=== PATIENT | female | born 1965 | race Caucasian/White ===

== ENCOUNTER 2024-09-28 10:32 | Outpatient (AMB) | payer MEDICARE, SELFPAY ==
--- NOTE | 2024-09-28 10:43 | A.OFFPC_ITS ---
Vital Signs 09/28/24 10:53 Height 5 ft 3 in Weight 134 lb 6 oz BMI 23.8 BP 154/51 H Blood Pressure Location Lt brachial Position Sitting Respiration 16 Pulse 51 Pulse Source Pulse Oximeter Temp 98.2 F Temp Source Oral Pulse Oximetry (%) 100 Oxygen Delivery Method Room Air Intake Visit Reasons: PORTER BATH- Thyroid med Intake Note: patient here for new patient visit needs thyroid meds Hydraulic Dredge Operator Required: No Is last menstrual period known: No Post menopausal: No Patient : No Allergies acetaminophen (From Percocet) Allergy (Unknown, Verified 09/28/24 10:49) Difficulty Breathing aspirin (From Percodan) Allergy (Unknown, Verified 09/28/24 10:49) Difficulty Breathing morphine Allergy (Unknown, Verified 09/28/24 10:49) Difficulty Breathing oxycodone (From Percodan) Allergy (Unknown, Verified 09/28/24 10:49) Difficulty Breathing Penicillins Allergy (Unknown, Verified 09/28/24 10:49) Unknown contrast dye Allergy (Severe, Uncoded 12/13/23 11:55) blacking out and vomiting femstat vaginal cream Allergy (Unknown, Uncoded 12/13/23 11:55) Rash tylenol and codeine Allergy (Unknown, Uncoded 12/13/23 11:55) Difficulty Breathing Tobacco use date assessed: 09/28/24 Dental Screening Dental Screen Date: 09/28/24 Did you have a dental visit in the last 12 months?: Yes Did you have a dental problem in the last 6 months where you did not have access to dental care?: No Was dental information given to patient?: Patient has dentist HPI HPI Comments History of Present Illness Details This is a 59-year-old female with a past medical history of squamous cell carcinoma of the tongue, mild carotid artery stenosis, non alcoholic fatty liver disease, lobular carcinoma insitu of the breast, hyperlipidemia and allergic urticaria presenting [facility]. Her depression screening is positive, and she wants to discuss this today. in 2011. Her cheated on her. She endorses trust issues. She never pursued dating because of this. She was hospitalized around that time for depression due to severe appetite loss. She was given a medication initially that made her feel numb. She doesn't recall the name. At one point she took Celexa, and she denies known side effects. She wants to retry medication. Endorses anxiety. One daughter lives with her ex-. Patient says she is kind of estranged from her daughter. Endorses fatigue, teafulness, feeling depressed. [facility] Hypothyroidism-post operative hypothyroidism (following surgery for tongue cancer). History of tongue cancer- Dx 2019. patient in remission. Treated with radiation and surgery. seen at [facility] once yearly. Endorses pain of the gland of the right side of the neck x 1 week. No recent illness. Denies sore throat. No fevers or chills. History of left breast carcinoma in situ-followed by [facility] breast specialty on [address] in [place], but she says they don't take her insurance anymore. Patient says they were following a lesion of the right breast with imaging. ROS: Constitutional: No unexplained weight loss, fever, chills ENT: No hearing loss, sneezing, congestion, runny nose or sore throat. Respiratory: No shortness of breath Cardiovascular: No chest pain Neurologic: No headache, dizziness, syncope Hematologic/Lymphatics: No bleeding or bruising. Skin: No rash. Endocrine: No cold or heat intolerance. No polyuria or polydipsia. Psychiatric: No SI/HI. Denies hallucinations or history of psychotic disorder. Physical exam: Constitutional: Alert, in no distress. Head: Normocephalic. Eyes: Pupils are equal, round and reactive to light. Extraocular muscles intact. Ear, Nose and Throat: Canals clear. TMs normal. Normal nasal mucosa. No nasal discharge. No oral lesions. Neck: Supple, Full range of motion. No palpable masses or lymphadenopathy, but she endorses tenderness of the right tonsillar and submandibular area. Respiratory: Clear to auscultation. Cardiovascular: S1 S2 regular. No murmurs. Psychiatric: Tearful, cooperative [facility] Medical History (Updated 09/29/24 @ 14:05 by JIM Bronson) History of tongue cancer Pain of submandibular gland History of tobacco use Depression with anxiety History of left breast cancer Mild atherosclerosis of carotid artery PFO (patent foramen ovale) Non-alcoholic fatty liver disease HTN (hypertension) Hypercholesteremia Allergic urticaria Surgical History (Updated 12/13/23 @ 12:00 by Daniela Andrea CMA) Hx of cholecystectomy H/O breast surgery H/O repair of rotator cuff History of colonoscopy Status post excisional biopsy H/O endoscopy Family History (Updated 09/28/24 @ 10:53 by Francisca Amaya MA) Father Diabetes Renal cancer Alcohol abuse Brother Diabetes Sister Cancer of breast Paternal Grandfather Alcohol abuse Social History (Updated 09/28/24 @ 10:52 by Francisca Amaya MA) Housing: Condominium Patient Tobacco Use Status: Never used Tobacco e-Cigarette/Vaping Use: Never Used Second Hand Smoke Exposure: Yes service: No Current occupational status: disabled Current occupational exposures/hazards: No Cognitive needs: No Hearing needs: No Vision needs: Yes Questionnaire PHQ-9 Over the last 2 weeks, how often have you been bothered by any of the following problems? 1. Little interest or pleasure in doing things: several days 2. Feeling down, depressed, or hopeless: several days 3. Trouble falling or staying asleep, or sleeping too much: several days 4. Feeling tired or having little energy: several days 5. Poor appetite or overeating: several days 6. Feeling bad about yourself - or that you are a failure or have let yourself o r your family down: several days 7. Trouble concentrating on things, such as reading the newspaper or watching television: not at all 8. Moving or speaking so slowly that other people could have noticed. Or the opposite - being so fidgety or restless that you have been moving around a lot more than usual: not at all 9. Thoughts that you would be better off or of hurting yourself in some way: not at all Total score: 6 Depression Screening Interpretation: Positive Depression Screening Done: Yes 24547 - PHQ-9 Billing: Yes Source: Developed by Drs. Eliezer Sapp, Verona Candelario, Pete Meade and colleagues, with an educational rocky from [employer]. Thrive Questionnaire Date Thrive assessed: 09/28/24 I am a: Patient What is your living situation today?: I have a steady place to live Within the past 12 months, did the food you bought not last and you didn't have the money to get more?: Never true Within the past 12 months, did you worry whether your food would run out before you got money to buy more?: Never true Do you have trouble paying for medicines?: No Do you have trouble getting transportation to medical appointments?: No Do you have trouble paying your heating and electricity bill?: No Do you have trouble taking care of your child, family member or friend?: No Do you have trouble with day-to-day activities such as bathing, preparing meals, shopping, managing finances, etc.?: No Are you currently unemployed and looking for a job?: No Are you interested in more education?: No Please select the resources that you would like help with: Food and Utilities Currently or been in a relationship where the following occur: No concerns reported THRIVE Score: 0 AUDIT C Alcohol Use Questionnaire (AUDIT-C) 1. How often do you have a drink containing alcohol?: 2-4 times a month 2. How many drinks containing alcohol do you have on a typical day when you are drinking?: 1 or 2 3. How often do you have six or more drinks on one occasion?: Never Total Score: 2 Score Reviewed/Action Taken: Yes JUSTINE-7 AMB Questionnaire JUSTINE-7 Date JUSTINE - 7 assessed: 09/28/24 Feeling nervous, anxious, or on edge: 1 = Several days Not being able to stop or control worryin = Several days Worrying too much about different things: 1 = Several days Trouble relaxin = Several days Being so restless that it is hard to sit still: 1 = Several days Becoming easily annoyed or irritable: 1 = Several days Feeling afraid as if something awful might happen: 1 = Several days Total JUSTINE-7 score (0-4 normal; 5-9 mild; 10-14 moderate; 15-21 severe): 7 Source: Developed by Drs. Eliezer Sapp, Verona Candelario, Pete Meade and colleagues, with an educational rocky from [employer]. JUSTINE-7 Assessment Billing JUSTINE-7 Assessment Tool: JUSTINE-7 Assessment 82558 Physical exam (Primary Care) Vital Signs: Last Vital Signs Temp 98.2 F 09/28/24 10:53 Pulse 51 09/28/24 10:53 Resp 16 09/28/24 10:53 BP 154/51 H 09/28/24 10:53 Pulse Ox 100 09/28/24 10:53 Oxygen Delivery Method Room Air 09/28/24 10:53 BMI result Body Mass Index 23.8 Tobacco/Smoking Status: Tobacco use Status Tobacco use date assessed 09/28/24 09/28/24 10:52 Patient Tobacco Use Status Never used Tobacco 09/28/24 10:52 e-Cigarette/Vaping Use Never Used 09/28/24 10:52 PHQ-9: PHQ-9 Score PHQ-9: Total score 6 09/28/24 22:24 Depression Screening Interpretation: Positive Thrive Assessment: Date of Thrive Assessment Date Thrive assessed 09/28/24 09/28/24 10:47 Currently or been in a relationship where the following occur: No concerns reported Coding Level of Care Code New Pt Level 4 (40944) Complex EM visit Add On G2211 Diagnoses History of left breast cancer Z85.3 Depression with anxiety F41.8 HTN (hypertension) I10 Pain of submandibular gland K11.8 History of tongue cancer Z85.810 Additional Codes JUSTINE-7 Assessment Billing - JUSTINE-7 Assessment Tool: JUSTINE-7 Assessment 07032 ([id number]) PHQ-9 - 05534 - PHQ-9 Billing: Yes ([id number]) Assessment & Plan Assessment & Plan (1) History of left breast cancer: Comment: LCIS Code(s): Z85.3 - Personal history of malignant neoplasm of breast Category: Medical Plan: [facility] no longer takes her insurance. [facility] [place] Request records from [facility]-information from the breast specialty center was not included in transfer records. (2) Depression with anxiety: Code(s): F41.8 - Other specified anxiety disorders Category: Medical Plan: Continue therapy. Trial of citalopram. Black box warning, side effects and administration reviewed. (3) HTN (hypertension): Code(s): I10 - Essential (primary) hypertension Category: Medical Plan: Blood pressure is suboptimal today. She was emotionally charged during today's visit. Continue current regimen. Recheck at follow up visit. (4) Pain of submandibular gland: Code(s): K11.8 - Other diseases of salivary glands Category: Medical Plan: Check ultrasound. (5) History of tongue cancer: Code(s): Z85.810 - Personal history of malignant neoplasm of tongue Category: Medical Plan: This is in remission. Followed in [place]. Plan Follow up in 4 weeks. Orders: Referrals Breast Surgery Referral Z85.3 - Personal history of malignant neoplasm of breast Medications: New citalopram Take 1/2 tab po daily for 1 week then increase to 1 tab daily 10 mg PO DAILY 30 tabs 1RF
[2024-09-28 10:53] VITALS: BP 154/51; PULSE 51; RESP 16; TEMP 36.8; O2SAT 100; BMI 23.8
--- OUTSIDE RECORDS SUMMARY | 2024-09-28 11:41 | XMS_ITS | Clinical Summary ---
Author Organization [facility] Facility Address [address] [place] [address] Care Team Providers Care Technical Buyer Name Role Phone Toñito Suarez DO Primary Care Provider Allergies No known active allergies Medications levothyroxine sodium (TIROSINT) 50 MCG capsule Take 137 mcg by mouth 1 (one) time each day Active metoprolol succinate XL (TOPROL XL) 25 MG 24 hr tablet Take 25 mg by mouth 1 (one) time each day Do not crush or chew. Active Active Problems Problem Noted Date Diagnosed Date Essential (primary) hypertension 07/21/2021 Non-alcoholic fatty liver 07/21/2021 Hyperlipidemia 07/21/2021 Social History Tobacco Use Types Packs/Day Years Used Date Smoking Tobacco: Former Smokeless Tobacco: Never Tobacco Cessation:Counseling Given: No Alcohol Use Standard Drinks/Week Comments Yes 0 (1 standard drink = 0.6 oz pur e alcohol) Comments Unknown Sex and Gender Information Value Date Recorded Sex Assigned at Not on file Legal Sex Female 5:05 PM EST Gender Identity Not on file Sexual Orientation Not on file Last Filed Vital Signs Vital Sign Reading Time Taken Comments Blood Pressure 132/72 07/21/2021 4:38 PM EDT Pulse 72 07/21/2021 4:38 PM EDT Temperature - - Respiratory Rate - - Oxygen Saturation - - Inhaled Oxygen Concentration - - Weight 63.8 kg (140 lb 9.6 oz) 07/21/2021 4:38 P M EDT Height - - Body Mass Index - - Plan of Treatment Health Maintenance Due Date Last Done Comments Breast Cancer Screening 1965 Pneumococcal Vaccine: 50+ Years (1 of 2 - PCV) 983 Colorectal Cancer Screening: Annual FOBT 2012 Colorectal Cancer Screening: Colonoscopy 2012 Colorectal Cancer Screening: Sigmoidoscopy 2012 Hepatitis B Vaccine (1 of 3 - Risk 3-dose series) 02/17 Influenza Vaccine (#1) 2024 11/22/2018 Insurance Medicare Medicare Care Teams Technical Buyer Relationship Specialty Start Date End Date Toñito Suarez DO [address] [place] [address] PCP - General Family Medicine 06/30/21
--- OUTSIDE RECORDS SUMMARY | 2024-09-28 11:41 | XMS_ITS | Encounter Summary ---
Author Organization [facility] Address [address] [place] [address] Phone Care Team Providers Care Real Estate Services Administrator Name Role Phone Toñito Suarez Primary Care Provider Lakhwinder Murray MD Unavailable Leatha Johnson MD, MPH Unavailable [phone] Eliezer Watt MD Unavailable [phone] Slim Booker MD, DMD Unavailable Yuliet Mcpherson RN Unavailable [phone] Helena Salgado RN Unavailable Shyla Grande NP Unavailable Garrett Santoro Unavailable Silvia [email or web address] Yousif Lugo MD Primary Care Provider [phone] Encounter Details Date Type Department Care Team (Late st Contact Info) Description 11/19/2020 Procedure [facility] [place], [facility] [place] [address] [facility], Floor [address] [place] [address] Social History Tobacco Use Types Packs/Day Years Used Date Smoking Tobacco: Former Cigarettes 0.3 40 0 02/15/1977 - 02/15/2017 Smokeless Tobacco: Never Comments:off and on through the years, never heavily--second hand smoke exposure Alcohol Use Standard Drinks/Week Comments Yes 0 (1 standard drink = 0.6 oz pure alcohol) 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--no alcohol since 2018 Comments No Sex and Gender Information Value Date Recorded Sex Assigned at Female 08/11/2020 9:04 PM EDT Legal Sex Female 3:32 PM EDT Gender Identity Female 08/11/2020 9:04 PM EDT Sexual Orientation Straight 08/11/2020 9: 04 PM EDT documented as of this encounter Plan of Treatment Not on file documented as of this encounter Visit Diagnoses Not on filedocumented in this encounter Additional Health Concerns Assessment Noted Time PHQ-2 Depression Total Score: 0 12/17/19 19 8:09 AM EDT documented as of this encounter Care Teams Real Estate Services Administrator Relationship Specialty Start Date End Date Toñito Suarez DO [address] [facility] [place] [address] PCP - General Family Medicine 09/26/18 02/02/23 Yousif Lugo MD [address] [place] [address] PCP - General 02/04/23 Lakhwinder Murray MD [address] [facility] [place] [address] [email or web address] Referring Physician lockstitch machine operator 09/26/18 Leatha Johnson MD, MPH [address] [place] [phone] [email or web address] Radiation Oncology 10/26/18 Eliezer Watt MD [address] [place] [phone] [email or web address] Medical Oncology 11/03/18 Slim Booker MD, DMD [address] [place] [phone] [email or web address] Otolaryngology 11/03/18 Yuliet Mcpherson RN [address] [place] [phone] [email or web address] Primary Infusion Nurse 12/19/18 06/25/22 Helena Salgado RN [address] [place] [address] [email or web address] Associate Infusion Nurse 12/22/18 06/25/22 Shyla Grande NP [address] [place] [phone] Marva@[email or web address] Radiation Oncology 01/06/19 Garrett Santoro [address] [place] [address] [email or web address] Correctional Supervisor 01/29/23 documented as of this encounter Additional Source Comments The information contained in this document represents components of the legal health record. It is not the complete legal health record.[facility]
== END 2024-09-28 11:33 | disposition home or self-care (01) ==
PROVIDERS: PCP Physician Assistant Medical; Visit Provider Physician Assistant Medical
DX: Z85.3 Personal history of malignant neoplasm of breast (principal); F41.8 Other specified anxiety disorders; I10 Essential (primary) hypertension; K11.8 Other diseases of salivary glands; Z85.810 Personal history of malignant neoplasm of tongue

== ENCOUNTER → 2024-09-28 10:32 | Outpatient (BNVA) | payer MEDICARE, SELFPAY | PROVIDERS: PCP Physician Assistant Medical; Visit Provider Physician Assistant Medical | DX: F41.8 Other specified anxiety disorders (principal); I10 Essential (primary) hypertension; K11.8 Other diseases of salivary glands; E89.0 Postprocedural hypothyroidism; Z85.810 Personal history of malignant neoplasm of tongue; Z86.000 Personal history of in-situ neoplasm of breast; Z92.3 Personal history of irradiation; Z13.31 Encounter for screening for depression; Z13.39 Encounter for screening examination for other mental health and behavioral disorders | CPT/HCPCS: 96127; 99202 ==

== ENCOUNTER 2024-10-10 15:55 | Outpatient (REF) | payer MEDICARE, SELFPAY ==
--- NOTE | ~2024-10-10 | US_ITS ---
EXAMINATION: US SOFT TISSUE HEAD AND/OR NECK CLINICAL INFORMATION: Patient complaining of pain in left submandibular region. History of tongue cancer with prior removal of left submandibular gland. COMPARISON: None available. TECHNIQUE: Linear transducer lugo-scale and color Doppler examination with attention to the left submandibular region, in the region of pain. The right submandibular region was also imaged for comparison purposes. FINDINGS: Left submandibular region demonstrates no mass, abnormal lymph nodes, or abnormal fluid collection. The left submandibular gland is not seen and is presumably surgically absent. Imaging of the right submandibular gland demonstrates a normal appearing gland measuring 2.8 x 1.0 cm. No abnormal lymph nodes, mass, or abnormal fluid collection. US/US soft tiss head and/or neck IMPRESSION: 1. Absent left submandibular gland, presumably surgically absent. 2. No sonographic abnormality in the left submandibular region to account for the patient's symptoms. 3. Grossly normal appearance of the right submandibular gland. Electronically signed by: Nathanael Abernathy MD 10/10/2024 04:50 PM EDT
--- OUTSIDE RECORDS SUMMARY | 2024-10-10 16:39 | XMS_ITS | Encounter Summary ---
Author Organization [facility] Address [address] [place] [address] Phone Care Team Providers Care Fence Installer Helper Name Role Phone Toñito Suarez Primary Care Provider Lakhwinder Murray MD Unavailable [phone] Leatha Johnson MD, MPH Unavailable [phone] Eliezer Watt MD Unavailable [phone] Slim Booker MD, DMD Unavailable Yuliet Mcpherson RN Unavailable [phone] Helena Salgado RN Unavailable Shyla Grande NP Unavailable Garrett Santoro Unavailable Silvia [email or web address] Yousif Lugo MD Primary Care Provider [phone] Encounter Details Date Type Department Care Team (Late st Contact Info) Description 11/19/2020 Procedure [facility] [place] Imaging Department, [facility] [place], [place] [address] [facility], Floor [address] [place] [address] Social History Tobacco Use Types Packs/Day Years [...] documented as of this encounter Care Teams Fence Installer Helper Relationship Specialty Start Date End Date Toñito Suarez DO [address] [facility] [place] [address] PCP - General Family Medicine 09/26/18 02/02/23 Yousif Lugo MD [address] [place] [address] PCP - General 02/04/23 Lakhwinder Murray MD [address] [facility] [place] [address] [email or web address] Referring Physician barrel rifler 09/26/18 Leatha Johnson MD, MPH [address] [place] [phone] [email or web address] Radiation Oncology 10/26/18 Eliezer Watt MD [address] [place] [phone] [email or web address] Medical Oncology 11/03/18 Slim Booker MD, DMD [address] [place] [phone] [email or web address] Otolaryngology 11/03/18 Yuliet Mcpherson RN [address] [place] [phone] [email or web address] Primary Infusion Nurse 12/19/18 06/25/22 Helena Salgado RN [address] [place] [address] [email or web address] Associate Infusion Nurse 12/22/18 06/25/22 Shyla Grande NP [address] [place] [phone] Marva@[email or web address] Radiation Oncology 01/06/19 Garrett Santoro [address] [place] [address] [email or web address] Paint Tester 01/29/23 documented as of this encounter Additional Source Comments The information contained in this document represents components of the legal health record. It is not the complete legal health record.[facility]
--- OUTSIDE RECORDS SUMMARY | 2024-10-10 16:40 | XMS_ITS | Clinical Summary ---
Author Organization [facility] Facility Address [address] [place] [address] Care Team Providers Care Engineer Second Assistant Name Role Phone Toñito Suarez DO Primary Care Provider [phone] Allergies No known active allergies Medications levothyroxine [...] 2024 11/22/2018 Insurance Medicare Medicare Care Teams Engineer Second Assistant Relationship Specialty Start Date End Date Toñito Suarez DO [address] [place] [address] PCP - General Family Medicine 06/30/21
--- OUTSIDE RECORDS SUMMARY | 2024-10-10 16:40 | XMS_ITS | Encounter Summary ---
Author Organization [facility] Address [address] [place] [address] Phone Care Team Providers Care Proofsheet Corrector Name Role Phone Toñito Suarez Primary Care Provider Lakhwinder Murray MD Unavailable Leatha Johnson MD, MPH Unavailable [phone] Eliezer Watt MD Unavailable [phone] Slim Booker MD, DMD Unavailable Yuliet Mcpherson RN Unavailable [phone] Helena Salgado RN Unavailable Shyla Grande NP Unavailable Garrett Santoro Unavailable Silvia [email or web address] Yousif Lugo MD Primary Care Provider [phone] Encounter Details Date Type Department Care Team (Late st Contact Info) Description 10/04/2018 Procedure [facility] [place] Imaging Department, [facility] [place], [place] [address] [facility], Floor [address] [place] [address] Social History Tobacco Use Types Packs/Day Years Used Date Smoking Tobacco: Former Cigarettes Smokeless Tobacco: Never Comments:off and on through the years, never heavily Alcohol Use Standard Drinks/Week Comments Yes 0 (1 standard drink = 0.6 oz pure alcohol) 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 Comments Unknown Sex and Gender Information Value Date Recorded Sex Assigned at Female 08/11/2020 9:04 PM EDT Legal Sex Female 3:32 PM EDT Gender Identity Female 08/11/2020 9:04 PM EDT Sexual Orientation Straight 08/11/2020 9: 04 PM EDT documented as of this encounter Plan of Treatment Not on file documented as of this encounter Visit Diagnoses Not on filedocumented in this encounter Care Teams Proofsheet Corrector Relationship Specialty Start Date End Date Toñito Suarez DO [address] [facility] [place] [address] PCP - General Family Medicine 09/26/18 02/02/23 Yousif Lugo MD [address] [place] [address] PCP - General 02/04/23 Lakhwinder Murray MD [address] [facility] [place] [address] [email or web address] Referring Physician event host 09/26/18 Leatha Johnson MD, MPH [address] [place] [phone] [email or web address] Radiation Oncology 10/26/18 Eliezer Watt MD [address] [place] [phone] [email or web address] Medical Oncology 11/03/18 Slim Booker MD, DMD [address] [place] [phone] [email or web address] 11/03/18 Yuliet Mcpherson RN [address] [place] [address] [email or web address] Primary Infusion Nurse 12/19/18 06/25/22 Helena Salgado RN [address] [place] [phone] [email or web address] Associate Infusion Nurse 12/22/18 06/25/22 Shyla Grande NP [address] [place] [phone] [email or web address] Radiation Oncology 01/06/19 Garrett Santoro [address] [place] [address] [email or web address] Casing Soaker 01/29/23 documented as of this encounter Additional Source Comments The information contained in this document represents components of the legal health record. It is not the complete legal health record.[facility]
--- OUTSIDE RECORDS SUMMARY | 2024-10-10 16:40 | XMS_ITS | Encounter Summary ---
Author Organization [facility] Address [address] [place] [address] Phone Care Team Providers Care Measurement Psychologist Name Role Phone Toñito Suarez Primary Care Provider Lakhwinder Murray MD Unavailable [phone] Leatha Johnson MD, MPH Unavailable [phone] Eliezer Watt MD Unavailable Slim Booker MD, DMD Unavailable [phone] Yuliet Mcpherson RN Unavailable [phone] Helena Salgado RN Unavailable Shyla Grande NP Unavailable Garrett Santoro Unavailable Silvia @[email or web address] Yousif Lugo MD Primary Care Provider [phone] Encounter Details Date Type Department Care Team (Late st Contact Info) Description 04/14/2019 Transcribe Orders [place] [facility], [facility] [place], Imaging Ayana-df-Qcae 450 [facility], [place] [address] [place] [address] Leatha Johnson MD, MPH [address] [place] [address] [email or web address] Blood tests prior to treatment or procedure (Primary Dx) Social History Tobacco Use Types Packs/Day Years [...] on file documented as of this encounter Results * Creatinine/eGFR (04/17/2019 10:16 AM EST) CREATININE 0.59 0.50 - 1.20 mg/dL [facility] LIC# [id number] EGFR 102 >59 mL/min/1.7 3m2 [facility] LIC# [id number] Comment:If patient is Starla n-Turkmen, multiply result by 1.159. Estimated glomerular filtration rate calculated using the CKD-EPI equation. Blood 04/17/2019 10:1 6 AM EST 04/17/2019 10:30 AM EST us Leatha Johnson MD, MPH LAB BLOOD ORDERABLES Final Result [facility] LIC# [id number] [address] [place] [address] documented in this encounter Visit Diagnoses Diagnosis Blood tests prior to treatment or procedure- Primary Pre-procedural laboratory examination documented in this encounter Additional Health Concerns Assessment Noted Time PHQ-2 Depression Total Score: 0 12/17/19 19 8:09 AM EDT documented as of this encounter Care Teams Measurement Psychologist Relationship Specialty Start Date End Date Toñito Suarez DO 24 [facility] [place] [address] PCP - General Family Medicine 09/26/18 02/02/23 Yousif Lugo MD [address] [place] [address] PCP - General 02/04/23 Lakhwinder Murray MD 24 [facility] [place] [address] [email or web address] Referring Physician patient accounts coordinator 09/26/18 Leatha Johnson MD, MPH [address] [place] [phone] [email or web address] Radiation Oncology 10/26/18 Eliezer Watt MD [address] [place] [phone] Lalo@[facility] Medical Oncology 11/03/18 Slim Booker MD, DMD [address] [place] [phone] [email or web address] Otolaryngology 11/03/18 Yuliet Mcpherson RN [address] [place] [phone] MIYA@[email or web address] Primary Infusion Nurse 12/19/18 06/25/22 Helena Salgado RN 450 [place] [address] CRYSTAL@[email or web address] Associate Infusion Nurse 12/22/18 06/25/22 Shyla Grande NP [address] [place] [address] Marva@[email or web address] Radiation Oncology 01/06/19 Garrett Santoro [address] [place] [address] Silvia@[email or web address] Income Tax Administrator 01/29/23 documented as of this encounter Additional Source Comments The information contained in this document represents components of the legal health record. It is not the complete legal health record.[facility]
--- OUTSIDE RECORDS SUMMARY | 2024-10-10 16:40 | XMS_ITS | Encounter Summary ---
Author Organization [facility] Address [address] [place] [address] Phone Care Team Providers Care Senior Sales Executive Name Role Phone Toñito Suarez Primary Care Provider Lakhwinder Murray MD Unavailable Leatha Johnson MD, MPH Unavailable [phone] Eliezer Watt MD Unavailable [phone] Slim Booker MD, DMD Unavailable Yuliet Mcpherson RN Unavailable [phone] Helena Salgado RN Unavailable Shyla Grande NP Unavailable Garrett Santoro Unavailable Silvia @[email or web address].[facility] Yousif Lugo MD Primary Care Provider [phone] Encounter Details Date Type Department Care Team (Late st Contact Info) Description 08/12/2019 Procedure Pass [place] [facility] Department, [facility] [place] 450 [facility], [address] [place] [address] Social History Tobacco Use Types Packs/Day Years [...] Time PHQ-2 Depression Total Score: 0 12/17/19 8:09 AM EDT documented as of this encounter Care Teams Senior Sales Executive Relationship Specialty Start Date End Date Toñito Suarez DO 24 No [facility] [place] [address] PCP - General Family Medicine 09/26/18 02/02/23 Yousif Lugo MD [address] [place] [address] PCP - General 02/04/23 Lakhwinder Murray MD 24 No [facility] [place] [address] [email or web address] Referring Physician getter welder 09/26/18 Leatha Johnson MD, MPH [address] [place] [phone] [email or web address] Radiation Oncology 10/26/18 Eliezer Watt MD [address] [place] [phone] Lalo@[facility] Medical Oncology 11/03/18 Slim Booker MD, DMD [address] [place] [phone] [email or web address] Otolaryngology 11/03/18 Yuliet Mcpherson RN [address] [place] [address] MIYA@[email or web address] Primary Infusion Nurse 12/19/18 06/25/22 Helena Salgado RN [address] [place] [address] CRYSTAL@[facility] Associate Infusion Nurse 12/22/18 06/25/22 Shyla Grande NP [address] [place] [address] Marva@[facility] Radiation Oncology 01/06/19 Garrett Santoro [address] [place] [address] Silvia@[facility] Automobile Mechanic Assistant 01/29/23 documented as of this encounter Additional Source Comments The information contained in this document represents components of the legal health record. It is not the complete legal health record.[facility]
--- OUTSIDE RECORDS SUMMARY | 2024-10-10 16:40 | XMS_ITS | Encounter Summary ---
Author Organization [facility] Address [address] [place] [address] Phone Care Team Providers Care Environmental Health Technician Name Role Phone Toñito Suarez Primary Care Provider Lakhwinder Murray MD Unavailable Leatha Johnson MD, MPH Unavailable [phone] Eliezer Watt MD Unavailable Slim Booker MD, DMD Unavailable Yuliet Mcpherson RN Unavailable [phone] Helena Salgado RN Unavailable Shyla Grande NP Unavailable [phone] Garrett Santoro Unavailable Silvia @[email or web address].[facility] Yousif Lugo MD Primary Care Provider [phone] Encounter Details Date Type Department Care Team (Late st Contact Info) Description 09/12/2019 Procedure Pass [place] [facility] Department, [facility] [place], [place] 450 [facility], Floor [address]1 [place] [address] Social History Tobacco Use Types Packs/Day Years [...] documented as of this encounter Care Teams Environmental Health Technician Relationship Specialty Start Date End Date Toñito Suarez DO 24 No [facility] [place] [address] PCP - General Family Medicine 09/26/18 02/02/23 Yousif Lugo MD [address] [place] [address] PCP - General 02/04/23 Lakhwinder Murray MD 24 No [facility] [place] [address] [email or web address] Referring Physician senior payroll administrator 09/26/18 Leatha Johnson MD, MPH [address] [place] [phone] Russ@[email or web address] Radiation Oncology 10/26/18 Eliezer Watt MD [address] [place] [phone] Lalo@[facility] Medical Oncology 11/03/18 Slim Booker MD, DMD [address] [place] [phone] [email or web address] Otolaryngology 11/03/18 Yuliet Mcpherson RN 450 [place] [address] MIYA@[facility] Primary Infusion Nurse 12/19/18 06/25/22 Helena Salgado RN 450 [place] [address] CRYSTAL@[facility] Associate Infusion Nurse 12/22/18 06/25/22 Shyla Grande NP [address] [place] [address] Marva@[facility] Radiation Oncology 01/06/19 Garrett Santoro [address] [place] [address] Silvia@[facility] Manager Card 01/29/23 documented as of this encounter Additional Source Comments The information contained in this document represents components of the legal health record. It is not the complete legal health record.[facility]
--- OUTSIDE RECORDS SUMMARY | 2024-10-10 16:40 | XMS_ITS | Encounter Summary ---
Author Organization [facility] Address [address] [place] [address] Phone Care Team Providers Care Bulb Packer Name Role Phone Toñito Suarez Primary Care Provider Lakhwinder Murray MD Unavailable Leatha Johnson MD, MPH Unavailable [phone] Eliezer Watt MD Unavailable Slim Booker MD, DMD Unavailable Yuliet Mcpherson RN Unavailable [phone] Helena Salgado RN Unavailable Shyla Grande NP Unavailable Garrett Santoro Unavailable Silvia @[facility].[email or web address].[facility] Yousif Lugo MD Primary Care Provider [phone] Encounter Details Date Type Department Care Team (Late st Contact Info) Description 10/14/2018 Procedure Pass [facility] Periop [address] [place] [address] Social History Tobacco Use Types Packs/Day Years Used Date Smoking Tobacco: Former Cigarettes Smokeless Tobacco: Never Comments:off and on through the years, never heavily Alcohol Use Standard Drinks/Week Comments Yes 0 (1 standard drink = 0.6 oz pure alcohol) 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 Comments No Sex and Gender Information Value [...] on filedocumented in this encounter Care Teams Bulb Packer Relationship Specialty Start Date End Date Toñito Suarez DO 24 [facility] [place] [address] PCP - General Family Medicine 09/26/18 02/02/23 Yousif Lugo MD [address] [place] [address] PCP - General 02/04/23 Lakhwinder Murray MD 24 [facility] [place] [address] Precious@[employer] Referring Physician check examiner 09/26/18 Leatha Johnson MD, MPH [address] [place] [phone] Russ@[email or web address] Radiation Oncology 10/26/18 Eliezer Watt MD [address] [place] [phone] Lalo@[facility] Medical Oncology 11/03/18 Slim Booker MD, DMD [address] [place] [phone] [email or web address] Otolaryngology 11/03/18 Yuliet Mcpherson RN 450 [place] [address] MIYA@[facility] Primary Infusion Nurse 12/19/18 06/25/22 Helena Salgado RN 450 [place] [address] [email or web address]@[email or web address] Associate Infusion Nurse 12/22/18 06/25/22 Shyla Grande NP [address] [place] [phone] Marva@[email or web address] Radiation Oncology 01/06/19 Garrett Santoro [address] [place] [address] Silvia@[facility] Beaver Trapper 01/29/23 documented as of this encounter Additional Source Comments The information contained in this document represents components of the legal health record. It is not the complete legal health record.[facility]
--- OUTSIDE RECORDS SUMMARY | 2024-10-10 16:40 | XMS_ITS | Encounter Summary ---
Author Organization [facility] Address [address] [place] [address] Phone Care Team Providers Care Satellite Communications Engineer Name Role Phone Toñito Suarez Primary Care Provider Lakhwinder Murray MD Unavailable Leatha Johnson MD, MPH Unavailable [phone] Eliezer Watt MD Unavailable [phone] Slim Booker MD, DMD Unavailable Yuliet Mcpherson RN Unavailable [phone] Helena Salgado RN Unavailable Shyla Grande NP Unavailable Garrett Santoro Unavailable Silvia @[email or web address] Yousif Lugo MD Primary Care Provider [phone] Encounter Details Date Type Department Care Team (Late st Contact Info) Description 11/19/2020 Procedure Pass [place] Imaging Department, [facility] [place], [place] 450 [facility], Floor [address]1 [place] [address] Social History Tobacco Use Types Packs/Day Years [...] documented as of this encounter Care Teams Satellite Communications Engineer Relationship Specialty Start Date End Date Toñito Suarez DO 24 No [facility] [place] [address] PCP - General Family Medicine 09/26/18 02/02/23 Yousif Lugo MD [address] [place] [address] PCP - General 02/04/23 Lakhwinder Murray MD 24 No [facility] [place] [address] Precious@[email or web address] Referring Physician supervisor customer services 09/26/18 Leatha Johnson MD, MPH [address] [place] [address] Russ@[email or web address] Radiation Oncology 10/26/18 Eliezer Watt MD [address] [place] [phone] Lalo@[email or web address] Medical Oncology 11/03/18 Slim Booker MD, DMD [address] [place] [phone] [email or web address] Otolaryngology 11/03/18 Yuliet Mcpherson RN 450 [place] [address] MIYA@[facility] Primary Infusion Nurse 12/19/18 06/25/22 Helena Salgado RN 450 [place] [address] CRYSTAL@[facility] Associate Infusion Nurse 12/22/18 06/25/22 Shyla Grande NP [address] [place] [address] Marva@[facility] Radiation Oncology 01/06/19 Garrett Santoro 75 [place] [address] Silvia@[facility] Occupational Therapy Asst 01/29/23 documented as of this encounter Additional Source Comments The information contained in this document represents components of the legal health record. It is not the complete legal health record.[facility]
--- OUTSIDE RECORDS SUMMARY | 2024-10-10 16:40 | XMS_ITS | Clinical Summary ---
Author Organization [facility] Address [address] [place] [address] Phone Care Team Providers Care Supervisory Cbp Officer Name Role Phone Lakhwinder Murray MD Unavailable Leatha Johnson MD, MPH Unavailable [phone] Eliezer Watt MD Unavailable [phone] Slim Booker MD, DMD Unavailable [phone] Shyla Grande INVESTMENT EXECUTIVE Unavailable Garrett Santoro Unavailable Garrett_Maude @[facility] Yousif Lugo MD Primary Care Provider [phone] Allergies Active Allergy Reactions Criticality Noted Date Comments Bee Pollen 09/27/2018 Codeine Shortness Of Breath High 09/27/2018 chest heaviness, erythema Gadolinium-Containing Contrast Media 10/10/2018 IV Contrast, reports having MRI last week and did not have reaction Morphine Shortness Of Breath,Erythema Multiforme High 09/27/2018 Heaviness in chest Penicillins Erythema Multiforme 09/27/2018 Oxycodone-Acetaminophe n Shortness Of Breath,Erythema Multiforme High 09/27/2018 Heaviness in chest Medications therapeutic multivitamin tablet Take 1 tablet by mouth daily. Active metoprolol succinate (TOPROL-XL) 25 MG 24 hr tablet Take 25 mg by mouth 2 (two) times a day. 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 Tongue cancer 10/14/2018 Cancer Staging:Clinical stage from 12/06/2019:Stage DAVID(cT1, cN2b, cM0, Absent) - Unsigned Pathologic stage from 12/06/2019:Stage DAVID(pT2, pN2b, cM0) - Unsigned Squamous cell carcinoma of base of tongue 2018 Hypertensive disorder Family History Medical History Relation Comments Diabetes Brother Kidney cancer Father Breast cancer Maternal Cousin Diabetes Mother Pacemaker Mother Late 40s/early 5 0s Breast cancer Sister 1 Diabetes Sister 1 Breast cancer Sister 2 Heart attack Neg Hx Sudden Neg Hx Relation Status Comments Brother Father Maternal Cousin Mother Sister 1 Alive Sister 2 Social History Tobacco Use Types Packs/Day Years Used Date Smoking Tobacco: Former Cigarettes 0.3 40 0 02/15/1977 - 02/15/2017 Smokeless Tobacco: Never Comments:off and on through the years, never heavily--second hand smoke exposure Alcohol Use Standard Drinks/Week Comments Yes 0 (1 standard drink = 0.6 oz pure alcohol) 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 Not on joanna e 06/12/2022 Are you concerned about learning? Not on file 06/12/2022 No 06/12/2022 No 06/12/2022 Digital Access Answer Date Recorded No 07/12/2022 No 07/12/2022 No 07/12/2022 Reliable internet access at home? Not on file 07/12/2022 Device with a working camera? Not on file Comments No Sex and Gender Information Value Date Recorded Sex Assigned at Female 08/11/2020 9:04 PM EDT Legal Sex Female 3:32 PM EDT Gender Identity Female 08/11/2020 9:04 PM EDT Sexual Orientation Straight 08/11/2020 9: 04 PM EDT Last Filed Vital Signs Vital Sign Reading Time Taken Comments Blood Pressure 153/75 02/04/2023 11:22 AM EST Pulse 56 02/04/2023 11:22 AM EST Temperature 37 C (98.6 F) 02/04/2023 11:22 AM EST Respiratory Rate 18 02/04/2023 11:2 2 AM EST Oxygen Saturation 99% 02/04/2023 11: 22 AM EST Inhaled Oxygen Concentration 30% 10/14/2018 6 :18 PM EDT Weight 63.5 kg (139 lb 15.9 oz) 023 11:22 AM EST Height 161.7 cm (5' 3.66 ) 02/04/2023 1 1:22 AM EST Body Mass Index 24.29 02/04/2023 11:22 AM EST Plan of Treatment Health Maintenance Due Date Last Done Comments Adult Td,Tdap Booster 1963 LIPID PANEL 1963 SMOKING Hx and SMOKELESS TOBACCO SCREENING 1976 HEPATITIS C SCREENING 1981 HIV ONE-TIME SCREENING (18-65 YEARS) 1981 PNEUMOCOCCAL VACCINES (50+ years) (1 of 2 - PCV) 1982 ZOSTER VACCINES (1 of 2) 1982 PAP SMEAR 1984 MAMMOGRAM 2003 COLOGUARD 2008 COLONOSCOPY 2008 COLORECTAL CANCER SCREENING 2008 FIT TEST 2008 FOBT 2008 SIGMOIDOSCOPY 2008 VIRTUAL COLONOSCOPY 2008 DEPRESSION SCREENING 12/17/2019 12/16/2018 TSH LEVEL 08/14/2021 08/14/2020, 04/17, 09/11/2019 BLOOD PRESSURE 08/06/2023 02/04/2023 COVID-19 VACCINE ( season) 2023 12/22/2021, 02/16/2021, 05/01/2020, Additional history exists RSV VACCINE (1 - 1-dose 75+ series) 2038 HEPATITIS A VACCINES Aged Out No long er eligible based on patient's age to complete this topic HIB VACCINES Aged Out No longer eligi ble based on patient's age to complete this topic MENINGOCOCCAL VACCINES (ACWY) Aged Out No longer eligible based on patient's age to complete this topic MENINGOCOCCAL VACCINES (B) Aged Out N o longer eligible based on patient's age to complete this topic Medical Devices Not on file Procedures Procedure Name Priority Date/Time Associated Diagnosis Comments TSH Routine 08/14/2020 11:01 AM EDT 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 from Last 3 Months or Most Recently Relevant to Health Maintenance Results * TSH (08/14/2020 11:01 AM EDT) TSH 2.82 0.27 - 4.20 uIU/mL [facility] LIC# [id number] Blood 08/14/2020 11:0 1 AM EDT 08/14/2020 11:10 AM EDT us Leatha Johnson MD, MPH LAB BLOOD ORDERABLES Final Result [facility] LIC# [id number] [address] [place] [address] from Last 3 Months or Most Recently Relevant to Health Maintenance Insurance [facility] A[facility] MEDICARE REPLACEMENT [facility] MEDICARE [facility]PLACEMENT [facility] MEDICARE REPLACEMENT [facility] MEDICARE REPLACEMENT Member Subscriber Plan / Payer (Ef fective 2022-Present) Name:Cee Montgomery A Relation to Subscriber:Self Name:Cee Montgomery A Payer ID:[id number] (NAIC) Type:Medicare Address: [place] [id number] [facility] MEDICARE REPLACEMENT [facility] MEDICARE REPLACEMENT Advance Directives For more information, please contact: [phone] (9AM - 5PM [facility], Wednesday-Wednesday) Documents on File Type Date Recorded Patient Commercial Hvac Service Technician Expl magdalene Healthcare Proxy 10/14/2018 * Full Code (Presumed) (Latest Code Status on File) Date Activated Date Inactivated Comments 10/14/2018 7:58 PM 10/17/2018 4:31 PM Healthcare Agents on File Name Relationship Healthcare Agent Relationship Communication David Freeman .Primary Health Care Agent (Proxy form on file) Eddie Downing Brothnazia Alternate Health care Agent (Proxy form on file) Care Teams Supervisory Cbp Officer Relationship Specialty Start Date End Date Yousif Lugo MD [address] [place], [place] [phone] PCP - General 02/04/23 Lakhwinder Murray MD Precious@[email or web address] Referring Physician lard mixer 09/26/18 Leatha Johnson MD, MPH [address] [place] [phone] [email or web address] Radiation Oncology 10/26/18 Eliezer Watt MD [address] [place] [phone] Lalo@[facility] Medical Oncology 11/03/18 Slim Booker MD, DMD [address] [place] [phone] [email or web address] Otolaryngology 11/03/18 Shyla Grande NP [address] [place] [phone] Marva@[facility] Radiation Oncology 01/06/19 Garrett Santoro [address] [place] [phone] Silvia@[facility] Deputy Sheriff Chief 01/29/23 Additional Source Comments The information contained in this document represents components of the legal health record. It is not the complete legal health record.[facility]
--- OUTSIDE RECORDS SUMMARY | 2024-10-10 16:40 | XMS_ITS | Encounter Summary ---
Author Organization [facility] Address [address] [place] [phone] Phone Care Team Providers Care Cereal Miller Name Role Phone Toñito Suarez Primary Care Provider Lakhwinder Murray MD Unavailable [phone] Leatha Johnson MD, MPH Unavailable [phone] Eliezer Watt MD Unavailable Slim Booker MD, DMD Unavailable Yuliet Mcpherson RN Unavailable [phone] Helena Salgado RN Unavailable Shyla Grande NP Unavailable Garrett Santoro Unavailable [email or web address] Yousif Lugo MD Primary Care Provider [phone] Encounter Details Date Type Department Care Team (Late st Contact Info) Description 09/12/2019 Procedure Pass [place] [facility], [facility] [place], [place] [address] [facility], [address] [place] [address] Social History Tobacco Use Types Packs/Day Years [...] documented as of this encounter Care Teams Cereal Miller Relationship Specialty Start Date End Date Toñito Suarez DO [address] [facility] [place] [address] PCP - General Family Medicine 09/26/18 02/02/23 Yousif Lugo MD [address] [place] [address] PCP - General 02/04/23 Lakhwinder Murray MD [address] [facility] [place] [address] [email or web address] Referring Physician commodity supervisor 09/26/18 Leatha Johnson MD, MPH [address] [place] [phone] [email or web address] Radiation Oncology 10/26/18 Eliezer Watt MD [address] [place] [phone] [email or web address] 11/03/18 Slim Booker MD, DMD [address] [place] [phone] [email or web address] 11/03/18 Yuliet Mcpherson RN [address] [place] [address] [email or web address] Primary Infusion Nurse 12/19/18 06/25/22 Helena Salgado RN [address] [place] [address] [email or web address] Associate Infusion Nurse 12/22/18 06/25/22 Shyla Grande NP [address] [place] [phone] [email or web address] Radiation Oncology 01/06/19 Garrett Santoro [address] [place] [address] [email or web address] Gang Supervisor 01/29/23 documented as of this encounter Additional Source Comments The information contained in this document represents components of the legal health record. It is not the complete legal health record.[facility]
== END 2024-10-10 15:56 | disposition home or self-care (01) ==
LOC: HO.US 15:55
PROVIDERS: PCP Physician Assistant Medical; Visit Provider Physician Assistant Medical
DX: K11.8 Other diseases of salivary glands (principal)
CPT/HCPCS: 76536

== ENCOUNTER → 2024-10-10 15:58 | Outpatient (BNV) | payer MEDICARE, SELFPAY | PROVIDERS: PCP Physician Assistant Medical; Visit Provider Radiology Diagnostic Radiology | DX: R68.84 Jaw pain (principal) | CPT/HCPCS: 76536 ==

== ENCOUNTER 2025-01-22 15:49 | Outpatient (AMB) | payer MEDICARE, SELFPAY ==
--- NOTE | 2025-01-22 15:51 | MHC.PC.OV ---
Vital Signs 01/22/25 15:56 01/22/25 15:58 01/22/25 16:27 01/22/25 16:29 Height 5 ft 3 in Weight 114 lb 4 oz BMI 20.2 BP 104/78 148/94 H 136/88 Blood Pressure Location Lt brachial Rt brachial Position Sitting Sitting Respiration 15 Pulse 101 H 88 Pulse Source Pulse Oximeter Temp 98.6 F Temp Source Temporal Artery Scan Pulse Oximetry (%) 99 Oxygen Delivery Method Room Air Oxygen Flow Rate 98.6 Intake Visit Reasons: D/C from [place] on 01/09 dehydrated Intake Note: Cee presents in the office today for a disharge follow up. Packer Insulation Required: No Is last menstrual period known: No Post menopausal: No Patient : No Allergies acetaminophen (From Percocet) Allergy (Unknown, Verified 01/22/25 15:55) Difficulty Breathing aspirin (From Percodan) Allergy (Unknown, Verified 01/22/25 15:55) Difficulty Breathing morphine Allergy (Unknown, Verified 01/22/25 15:55) Difficulty Breathing oxycodone (From Percodan) Allergy (Unknown, Verified 01/22/25 15:55) Difficulty Breathing Penicillins Allergy (Unknown, Verified 01/22/25 15:55) Unknown contrast dye Allergy (Severe, Uncoded 01/22/25 15:55) blacking out and vomiting femstat vaginal cream Allergy (Unknown, Uncoded 01/22/25 15:55) Rash tylenol and codeine Allergy (Unknown, Uncoded 01/22/25 15:55) Difficulty Breathing Tobacco use date assessed: 01/22/25 Dental Screening Dental Screen Date: 01/22/25 Did you have a dental visit in the last 12 months?: Yes Did you have a dental problem in the last 6 months where you did not have access to dental care?: No Was dental information given to patient?: Patient has dentist HPI HPI Comments History of Present Illness Details This is a 59-year-old female with a past medical history of squamous cell carcinoma of the tongue, mild carotid artery stenosis, non alcoholic fatty liver disease, lobular carcinoma insitu of the breast, hyperlipidemia and allergic urticaria presents for hospital follow up. The patient was admitted to [facility] 12/06/2024 to 12/09/2024 after near syncopal episode. She had fasted for lab work and been sick with gastroenteritis for several days before, and she stood up and became lightheaded and almost fell. Patient had DOMENICA with creatinine of 1.2 and mild elevation in AST/ALT, but otherwise labs were at baseline. She received IV fluids throughout hospital stay. She was found to be bradycardic on admission and metoprolol was held. Blood pressure improved with IV hydration and bradycardia was less likely to be the cause of patient's symptoms so metoprolol was restarted towards the end of the hospitalization. Patient was also found to be hypokalemic and had anemia due to folate deficiency. She was placed on 1 mg of folic acid daily. Since that time she has not had any other episodes of syncope or near-syncope. Patient says her usual weight is around 125 lb. She weighs 114 lb 4 oz today. In September she was 134 lb 6 oz. Patient endorses decreased appetite. She says this is due to a lot of stress especially around this time of the year as well as chronic decreased sense of taste following treatment for tongue cancer in 2019. She also reports vomiting about once per day due to stress. She says this is nothing new and she has always had vomiting when she has increased stress. She has a history of nonalcoholic fatty liver disease. Denies reflux, abdominal pain, hematemesis, blood in stools, diarrhea. She is eating fruit, vegetables and soup. Per transfer records she had colonoscopy 05/11/2013. She thinks she had 1 more recently than that. Drinks electrolyte and tea during the day. Sometimes she also has a protein shake. She has a history of depression and anxiety. in 2011. Her cheated on her. She has never pursued dating due to trust issues. She was hospitalized around that time for depression due to severe appetite loss. She was restarted on citalopram at our initial visit. She feels it is helping, and she wants to stay on this dose. One daughter lives with her ex-. She is kind of a strange from her daughter. [facility]. Hypothyroidism-post operative hypothyroidism (following surgery for tongue cancer). Taking levothyroxine. History of tongue cancer- Dx 2019. patient in remission. Treated with radiation and surgery. seen at [facility] once yearly. ROS: Constitutional: No fevers or chills. +fatigue and weight loss. Denies night sweats. ENT: No hearing loss, sneezing, congestion, runny nose or sore throat. Respiratory: No shortness of breath, cough or wheezing Cardiovascular: No chest pain, palpitations or pedal edema Neurologic: No headache, dizziness, tremors, numbness or weakness. No further episodes of near-syncope. Denies dizziness. Gastro: See HPI Hematologic/Lymphatics: No bleeding or bruising. Denies swollen glands. Skin: No rash. Endocrine: No cold or heat intolerance. No polyuria or polydipsia. Psychiatric: No SI/HI. Denies hallucinations or history of psychotic disorder. Physical exam: Constitutional: Alert, in no distress. Eyes: Pupils are equal, round and reactive to light. Extraocular muscles intact. Mouth/throat: No oral lesions, exudates or erythema Neck: Supple, Full range of motion. No lymphadenopathy. No palpable masses. Respiratory: Clear to auscultation. Cardiovascular: S1 S2 regular. No murmurs Gastrointestinal: Abdomen soft, non-tender, non-distended. Normal bowel sounds. No palpable masses. Neurologic: No focal neurological deficits. Skin: No rashes or jaundice Extremities: Warm and well perfused. No clubbing, cyanosis or edema. Psychiatric: Normal mood and affect [facility] Medical History (Updated 01/23/25 @ 17:41 by JIM Bronson) Near syncope Vomiting Weight loss History of tongue cancer Pain of submandibular gland History of tobacco use Depression with anxiety History of left breast cancer Mild atherosclerosis of carotid artery PFO (patent foramen ovale) Non-alcoholic fatty liver disease HTN (hypertension) Hypercholesteremia Allergic urticaria Surgical History (Updated 12/13/23 @ 12:00 by Daniela Andrea CMA) Hx of cholecystectomy H/O breast surgery H/O repair of rotator cuff History of colonoscopy Status post excisional biopsy H/O endoscopy Family History Father Diabetes Renal cancer Alcohol abuse Brother Diabetes Sister Cancer of breast Paternal Grandfather Alcohol abuse Social History (Updated 01/22/25 @ 15:56 by Viri Pimentel CMA) Housing: Condominium Alcohol intake: current Patient Tobacco Use Status: Former Tobacco user Cigarette Packs Per Day: 1 Cigarettes Per Day: 3 Years Smoked: 2 e-Cigarette/Vaping Use: Never Used Second Hand Smoke Exposure: Yes service: No Current occupational status: disabled Current occupational exposures/hazards: No Cognitive needs: No Hearing needs: No Vision needs: Yes Questionnaire Thrive Questionnaire Date Thrive assessed: 09/28/24 I am a: Patient What is your living situation today?: I have a steady place to live Within the past 12 months, did the food you bought not last and you didn't have the money to get more?: Never true Within the past 12 months, did you worry whether your food would run out before you got money to buy more?: Never true Do you have trouble paying for medicines?: No Do you have trouble getting transportation to medical appointments?: No Do you have trouble paying your heating and electricity bill?: No Do you have trouble taking care of your child, family member or friend?: No Do you have trouble with day-to-day activities such as bathing, preparing meals, shopping, managing finances, etc.?: No Are you currently unemployed and looking for a job?: No Are you interested in more education?: No Currently or been in a relationship where the following occur: No concerns reported THRIVE Score: 0 JUSTINE-7 AMB Questionnaire JUSTINE-7 Date JUSTINE - 7 assessed: 09/28/24 Source: Developed by Drs. Eliezer Sapp, Verona Candelario, Pete Meade and colleagues, with an educational rocky from [place]. Physical exam (Primary Care) Vital Signs: Last Vital Signs Temp 98.6 F 01/22/25 15:56 Pulse 88 01/22/25 16:27 Resp 15 01/22/25 15:56 BP 136/88 01/22/25 16:29 Pulse Ox 99 01/22/25 15:56 Oxygen Delivery Method Room Air 01/22/25 15:56 Oxygen Flow Rate 98.6 01/22/25 15:56 BMI result Body Mass Index 20.2 Tobacco/Smoking Status: Tobacco use Status Tobacco use date assessed 01/22/25 01/22/25 16:02 Patient Tobacco Use Status Former Tobacco user 01/22/25 16:02 e-Cigarette/Vaping Use Never Used 01/22/25 15:56 Thrive Assessment: Date of Thrive Assessment Date Thrive assessed 09/28/24 01/22/25 15:53 Currently or been in a relationship where the following occur: No concerns reported Coding Level of Care Code Est Pt Level 5 (21966) Complex visit Add On G2211 Diagnoses Depression with anxiety F41.8 HTN (hypertension) I10 Vomiting R11.10 History of tongue cancer Z85.810 Weight loss R63.4 Near syncope R55 Time Spent (min) 47 Comment Reviewing notes, seeing the patient, documentation Assessment & Plan Assessment & Plan (1) Depression with anxiety: Code(s): F41.8 - Other specified anxiety disorders Category: Medical (2) HTN (hypertension): Code(s): I10 - Essential (primary) hypertension Category: Medical (3) Vomiting: Code(s): R11.10 - Vomiting, unspecified Category: Medical (4) History of tongue cancer: Code(s): Z85.810 - Personal history of malignant neoplasm of tongue Category: Medical (5) Weight loss: Code(s): R63.4 - Abnormal weight loss Category: Medical (6) Near syncope: Code(s): R55 - Syncope and collapse Category: Medical Plan 59-year-old female presenting for hospital follow up following near syncopal episode in the setting of dehydration following fasting for labs and enteritis. No further episodes. She has weight loss and vomiting which she is attributing to stress and depression with anxiety. I am concerned about the weight loss. She has a history of malignancy. Prescribed ensure nutritional beverages. Refer to Gastroenterology. Check labs. Recommend did obtaining ultrasound and/or CT he list. She would like to start with labs 1st. Declined referral to dietitian. Declined increasing citalopram, but she agreed to re-evaluate the dose after holidays are done. She will continue to see her therapist regularly. She will continue her current regimen for hypertension. She had bradycardia while hospitalized, but it was not thought to be due to metoprolol, and she has no bradycardia today. Follow up in 6-8 weeks. Orders: Orders Vitamin B12 and Folate 01/22/25 D64.9 - Anemia, unspecified Ferritin 01/22/25 D64.9 - Anemia, unspecified IRON PROFILE 01/22/25 D64.9 - Anemia, unspecified H pylori Ag Stool 01/22/25 R63.4 - Abnormal weight loss Referrals Gastroenterology Referral R11.10 - Vomiting, unspecified, R63.4 - Abnormal weight loss
[2025-01-22 15:56] VITALS: BP 104/78; PULSE 101; RESP 15; TEMP 37; O2SAT 99; BMI 20.2
[2025-01-22 15:58] VITALS: BP 148/94
[2025-01-22 16:27] VITALS: PULSE 88
[2025-01-22 16:29] VITALS: BP 136/88
--- OUTSIDE RECORDS SUMMARY | 2025-01-23 01:24 | XMS_ITS | Clinical Summary ---
Author Organization [facility] Address [address] [place] [address] Phone Care Team Providers Care Testing Tech Name Role Phone Jasmin Winston Primary Care Provider [phone] Encounters Date Type Department Care Team Description 12/14/2024 3:04 PM EDT - 12/14/2024 11:59 PM EDT Hospital [facility] [address] [address] Encounter for screening mammogram for breast cancer Discharge Disposition: Home or Self Care 11/29/2024 [facility] [address] [phone] Andreas Hunter MD 11/21/2024 [facility] [address] [phone] Judy Hood MA 11/15/2024 [facility] [address] [phone] Judy Hood MA from Last 3 Months Medical History Medical History Date Comments Breast cancer (CMS/HCC V24, CMS/HCC V28) left Family History Medical History Relation Name Comments Breast cancer Other cousin Breast cancer Sister Relation Name Status Comments Other Sister Social History Tobacco Use Types Packs/Day Years Used Date Smoking Tobacco: Never Assessed Comments No Sex and Gender Information Value Date Recorded Sex Assigned at Not on file Legal Sex Female 10:15 PM EST Gender Identity Not on file Sexual Orientation Not on file Obstetrics History Para Term AB IAB SAB Ectopic Multiple Livin g Live Births 2 Last Filed Vital Signs Vital Sign Reading Time Taken Comments Blood Pressure - - Pulse - - Temperature - - Respiratory Rate - - Oxygen Saturation - - Inhaled Oxygen Concentration - - Weight 59 kg (130 lb) 12/14/2024 3:14 PM EDT Height 160 cm (5' 3 ) 12/14/2024 3:14 PM EDT Body Mass Index 23.03 12/14/2024 3:14 PM EDT Plan of Treatment Health Maintenance Due Date Last Done Comments Colorectal Cancer Screening: Colonoscopy 1963 Hepatitis A Vaccines (1 of 2 - Risk 2-dose series) 1982 Pneumococcal Vaccine: 50+ Years (1 of 2 - PCV) 1982 Zoster Vaccines (1 of 2) 1982 Cervical Cancer Screening: Pap Smear 1984 RSV Immunization Adult Patients (1 - Risk 50-74 years 1-dose series) 2013 Hepatitis B Vaccines (1 of 3 - Risk 3-dose series) 2023 Depression Screening 02/16/2024 Cholesterol Screening (Lipid Panel) 10/13/2024 HIV Screening 10/13/2024 Hepatitis C Screening 10/13/2024 Medicare Annual Wellness Visit 10/13/2024 Social Influencers of Health Screening 10/13/2024 COVID-19 Vaccine ( season) 2024 03/04/2023, 12/22/2021, 02/16/2021, Additional history exists Hypertension/CHF/CAD Annual BMP Blood Test 12/14/2024 Breast Cancer Screening 12/14/2026 12/14/2024, 12/01 DTaP,Tdap,and Td Vaccines (2 - Td or Tdap) 06/20/2034 06/20/2024 Influenza Vaccine Completed 12/07/2024, , 12/22/2021, Additional history exists HIB Vaccines Aged Out No longer eligi ble based on patient's age to complete this topic HPV Vaccines Aged Out No longer eligi ble based on patient's age to complete this topic IPV Vaccines Aged Out No longer eligi ble based on patient's age to complete this topic MMR Vaccines Aged Out No longer eligi ble based on patient's age to complete this topic Meningococcal ACWY Vaccine Aged Out N o longer eligible based on patient's age to complete this topic Meningococcal B Vaccine Aged Out No l onger eligible based on patient's age to complete this topic RSV Immunization Patients Under 20 months Aged Out No longer eligible based on patient's age to complete this topic Varicella Vaccines Aged Out No longer eligible based on patient's age to complete this topic Procedures Procedure Name Priority Date/Time Associated Diagnosis Comments MG MAMMO DIGITAL SCREENING W DERRICK BILAT Routine 12/14/2024 3:20 PM EDT Encounter for screening mammogram for breast cancer MG MAMMO DIGITAL SCREENING BILAT Routine 12/01/2024 8:08 AM EDT from Last 3 Months Results * MG Mammo Digital Screening w Derrick bilat (12/14/2024 3:20 PM EDT) Anatomical Region Laterality Modality Breast Bilateral Mammography 12/14/2024 3:29 PM EDT Impressions 12/14/2024 3:42 PM EDT No mammographic evidence of malignancy. No suspicious interval change. A negative mammogram in the presence of a clinically suspicious palpable abnormality does not preclude the possibility of malignancy or alter the indications for biopsy. ASSESSMENT: BI-RADS 2: BENIGN RECOMMENDATION(S): 1: Routine screening mammogram BILATERAL in 1 year. [facility] [address], [address] -------- FINAL REPORT -------- Dictated By: Adam Joseph Dictated Date: 12/14/2024 15:29 ET Assigned Physician: Adam Joseph Reviewed and Electronically Signed By: Adam Joseph Signed Date: 12/14/2024 15:42 ET Workstation ID: [id number] Transcribed By: Self Edit Transcribed Date: 12/14/2024 15:29 ET Narrative 12/14/2024 3:42 PM EDT EXAM: SCREENING MAMMOGRAPHY, BILATERAL HISTORY: SCREENING. Previous reports indicate previous excisional left breast biopsy yielding ADH. COMPARISON: 07/30/22, 07/28/21, 07/25/20 TECHNIQUE: Synthesized CC and MLO projections of each breast. Tomosynthesis of each breast in the CC and MLO projections. ADDITIONAL IMAGING: None Computer-aided detection was employed with the [employer] AI 3-D. TISSUE DENSITY: The breasts are heterogeneously dense, which may obscure small masses. (BI-RADS category C) I believe there has been slight increase in the amount of overall fibroglandular tissue. Correlate with any change in hormone replacement or hormonal blocking medication. FINDINGS: RIGHT BREAST: No suspicious mass. No suspicious calcification. No distortion. No additional suspicious right breast findings LEFT BREAST: No suspicious mass. No suspicious calcification. Distortion upper left breast consistent with prior excision. No additional suspicious left breast findings Procedure Note Adam Joseph MD - 12/14/2024 EXAM: SCREENING MAMMOGRAPHY, BILATERAL HISTORY: SCREENING. Previous reports indicate previous excisional leftbreast biopsy yielding ADH. COMPARISON: 07/30/22, 07/28/21, 07/25/20 TECHNIQUE: Synthesized CC and MLO projections of each breast.Tomosynthesis of each breast in the CC and MLO projections. ADDITIONAL IMAGING: None Computer-aided detection was employed with the [employer] AI 3-D. TISSUE DENSITY: The breasts are heterogeneously dense, which may obscuresmall masses. (BI-RADS category C) I believe there has been slight increase in the amount of overallfibroglandular tissue. Correlate with any change in hormone replacementor hormonal blocking medication. FINDINGS: RIGHT BREAST: No suspicious mass. No suspicious calcification. No distortion. Noadditional suspicious right breast findings LEFT BREAST: No suspicious mass. No suspicious calcification. Distortion upper left breast consistent with prior excision. No additional suspicious left breast findings IMPRESSION: No mammographic evidence of malignancy. No suspicious interval change. A negative mammogram in the presence of a clinically suspicious palpableabnormality does not preclude the possibility of malignancy or alter theindications for biopsy. ASSESSMENT: BI-RADS 2: BENIGN RECOMMENDATION(S): 1: Routine screening mammogram BILATERAL in 1 year. [facility] location[facility] [address], [address] -------- FINAL REPORT -------- Dictated By: Adam Joseph Dictated Date: 12/14/2024 15:29 ET Assigned Physician: Adam Joseph Reviewed and Electronically Signed By: Adam Joseph Signed Date: 12/14/2024 15:42 ET Workstation ID: [id number] Transcribed By: Self Edit Transcribed Date: 12/14/2024 15:29 ET us Self Referral Sppl IMG BI PROCEDURES Final Resul t * MG Mammo Digital Screening bilat (12/01/2024 8:08 AM EDT) Anatomical Region Laterality Modality Breast Bilateral Mammography us Historical Provider IMNo BI PROCEDURES Final R esult from Last 3 Months Insurance [employer] MED[employer]ARE ADVANTAGE Care Teams Testing Tech Relationship Specialty Start Date End Date Jasmin Winston PA [address] [place], [place] [id number] PCP - General Physician Associate Drafter 11/30/24
--- OUTSIDE RECORDS SUMMARY | 2025-01-23 01:24 | XMS_ITS | Encounter Summary ---
Author Organization [facility] Address [address] [place] [address] Phone Care Team Providers Care Speech And Hearing Clinic Director Name Role Phone Toñito Suarez Primary Care Provider Lakhwinder Murray MD Unavailable Leatha Johnson MD, MPH Unavailable [phone] Eliezer Watt MD Unavailable Slim Booker MD, DMD Unavailable [phone] Yuliet Mcpherson RN Unavailable [phone] Helena Salgado RN Unavailable Shyla Grande NP Unavailable Garrett Santoro Unavailable Silvia @[email or web address] Yousif Lugo MD Primary Care Provider [phone] Encounter Details Date Type Department Care Team (Late st Contact Info) Description 09/12/2019 Procedure Pass [place] [facility], [facility] [place] 450 [facility], Floor L1 [place] [address] Social History Tobacco Use Types Packs/Day Years [...] documented as of this encounter Care Teams Speech And Hearing Clinic Director Relationship Specialty Start Date End Date Toñito Suarez DO [address] [facility] [place] [address] PCP - General Family Medicine 09/26/18 02/02/23 Yousif Lugo MD [address] [place] [address] PCP - General 02/04/23 Lakhwinder Murray MD [address] [facility] [place] [address] Precious@[email or web address] Referring Physician shoe planner 09/26/18 Leatha Johnson MD, MPH [address] [place] [address] [email or web address] Radiation Oncology 10/26/18 Eliezer Watt MD [address] [place] [address] Lalo@[facility] Medical Oncology 11/03/18 Slim Booker MD, DMD [address] [place] [address] [email or web address] Otolaryngology 11/03/18 Yuliet Mcpherson RN [address] [place] [address] MIYA@[facility] Primary Infusion Nurse 12/19/18 06/25/22 Helena Salgado RN [address] [place] [address] CRYSTAL@[facility] Associate Infusion Nurse 12/22/18 06/25/22 Shyla Grande NP [address] [place] [address] Marva@[facility] Radiation Oncology 01/06/19 Garrett Santoro 75 [place] [address] Silvia@[facility] Insurance Instructor 01/29/23 documented as of this encounter Additional Source Comments The information contained in this document represents components of the legal health record. It is not the complete legal health record.[facility]
--- OUTSIDE RECORDS SUMMARY | 2025-01-23 01:24 | XMS_ITS | Encounter Summary ---
Author Organization [facility] Address [address] [place] [address] Phone Care Team Providers Care Waterfront Director Name Role Phone Toñito Suarez Primary Care Provider Lakhwinder Murray MD Unavailable Leatha Johnson MD, MPH Unavailable [phone] Eliezer Watt MD Unavailable Slim Booker MD, DMD Unavailable Yuliet Mcpherson RN Unavailable [phone] Helena Salgado RN Unavailable Shyla Grande NP Unavailable [phone] Garrett Santoro Unavailable Silvia @[email or web address].[email or web address].[facility] Yousif Lugo MD Primary Care Provider [phone] Encounter Details Date Type Department Care Team (Late st Contact Info) Description 09/12/2019 Procedure Pass [place] [facility], [facility] [place], [place] [facility], Floor [address]1 [place] [address] Social History Tobacco Use Types Packs/Day Years [...] documented as of this encounter Care Teams Waterfront Director Relationship Specialty Start Date End Date Toñito Suarez DO [address] [facility] [place] [address] PCP - General Family Medicine 09/26/18 02/02/23 Yousif Lugo MD [address] [place] [address] PCP - General 02/04/23 Lakhwinder Murray MD [address] [facility] [place] [place] [address] [email or web address] Referring Physician ibm websphere commerce developer 09/26/18 Leatha Johnson MD, MPH [address] [place] [address] [email or web address] Radiation Oncology 10/26/18 Eliezer Watt MD [address] [place] [address] Lalo@[facility] Medical Oncology 11/03/18 Slim Booker MD, DMD [address] [place] [address] [email or web address] Otolaryngology 11/03/18 Yuliet Mcpherson RN [address] [place] [address] MIYA@[facility] Primary Infusion Nurse 12/19/18 06/25/22 Helena Salgado RN [address] [place] [address] CRYSTAL@[facility] Associate Infusion Nurse 12/22/18 06/25/22 Shyla Grande NP [address] [place] [address] Marva@[facility] Radiation Oncology 01/06/19 Garrett Santoro 75 [place] [address] Silvia@[facility] Recovery Collector 01/29/23 documented as of this encounter Additional Source Comments The information contained in this document represents components of the legal health record. It is not the complete legal health record.[facility]
--- OUTSIDE RECORDS SUMMARY | 2025-01-23 01:24 | XMS_ITS | Encounter Summary ---
Author Organization [facility] Address [address] [place] [address] Phone Care Team Providers Care Composite Bond Technician Name Role Phone Toñito Suarez Primary Care Provider Lakhwinder Murray MD Unavailable [phone] Leatha Johnson MD, MPH Unavailable [phone] Eliezer Watt MD Unavailable Slim Booker MD, DMD Unavailable [phone] Yuliet Mcpherson RN Unavailable [phone] Helena Salgado RN Unavailable Shyla Grande NP Unavailable Garrett Santoro Unavailable Silvia @[email or web address].[facility] Yousif Lugo MD Primary Care Provider [phone] Encounter Details Date Type Department Care Team (Late st Contact Info) Description 11/19/2020 Procedure Pass [place] [facility] Department, [facility] [place], [place] 450 [facility], Floor [address]1 [place] [address] Social History Tobacco Use Types Packs/Day Years [...] documented as of this encounter Care Teams Composite Bond Technician Relationship Specialty Start Date End Date Toñito Suarez DO [address] [facility] [place] [address] PCP - General Family Medicine 09/26/18 02/02/23 Yousif Lugo MD [address] [place] [address] PCP - General 02/04/23 Lakhwinder Murray MD [address] [facility] [place] [address] Precious@[email or web address] Referring Physician hair boiler 09/26/18 Leatha Johnson MD, MPH [address] [place] [address] Russ@[email or web address] Radiation Oncology 10/26/18 Eliezer Watt MD [address] [place] [address] Lalo@[facility] Medical Oncology 11/03/18 Slim Booker MD, DMD [address] [place] [address] [email or web address] Otolaryngology 11/03/18 Yuliet Mcpherson RN [address] [place] [address] MIYA@[facility] Primary Infusion Nurse 12/19/18 06/25/22 Helena Salgado RN [address] [place] [address] CRYSTAL@[employer] [facility] Associate Infusion Nurse 12/22/18 06/25/22 Shyla Grande NP [address] [place] [address] Marva@[facility] Radiation Oncology 01/06/19 Garrett Santroo 75 [place] [address] Silvia@[facility] Passenger Flagman 01/29/23 documented as of this encounter Additional Source Comments The information contained in this document represents components of the legal health record. It is not the complete legal health record.[facility]
--- OUTSIDE RECORDS SUMMARY | 2025-01-23 01:24 | XMS_ITS | Encounter Summary ---
Author Organization [facility] Address [address] [place] [address] Phone Care Team Providers Care Road Roller Operator Hot Mix Name Role Phone Toñito Suarez Primary Care Provider Lakhwinder Murray MD Unavailable Leatha Johnson MD, MPH Unavailable [phone] Eliezer Watt MD Unavailable Slim Booker MD, DMD Unavailable [phone] Yuliet Mcpherson RN Unavailable [phone] Helena Salgado RN Unavailable Shyla Grande NP Unavailable Garrett Santoro Unavailable Silvia @[email or web address] Yousif Lugo MD Primary Care Provider [phone] Encounter Details Date Type Department Care Team (Late st Contact Info) Description 10/04/2018 Procedure Pass [place] [facility] Department, [facility] [place], [place] 450 [facility], Floor [address]1 [place] [address] Social History Tobacco Use Types Packs/Day Years [...] on filedocumented in this encounter Care Teams Road Roller Operator Hot Mix Relationship Specialty Start Date End Date Toñito Suarez DO [address] [facility] [place] [address] PCP - General Family Medicine 09/26/18 02/02/23 Yousif Lugo MD [address] [place] [address] PCP - General 02/04/23 Lakhwinder Murray MD [address] [facility] [place] [address] Precious@[email or web address] Referring Physician acid pump operator 09/26/18 Leatha Johnson MD, MPH [address] [place] [phone] Russ@[email or web address] Radiation Oncology 10/26/18 Eliezer Watt MD [address] [place] [address] Lalo@[facility] Medical Oncology 11/03/18 Slim Booker MD, DMD [address] [place] [address] [email or web address] Otolaryngology 11/03/18 Yuliet Mcpherson RN [address] [place] [address] MIYA@[facility] Primary Infusion Nurse 12/19/18 06/25/22 Helena Salgado RN 450 [place] [address] CRYSTAL@[email or web address] Associate Infusion Nurse 12/22/18 06/25/22 Shyla Grande NP [address] [place] [address] Marva@[facility] Radiation Oncology 01/06/19 Garrett Santoro 75 [place] [address] Silvia@[facility] Supervisor Sulfuric Acid Plant 01/29/23 documented as of this encounter Additional Source Comments The information contained in this document represents components of the legal health record. It is not the complete legal health record.[facility]
--- OUTSIDE RECORDS SUMMARY | 2025-01-23 01:24 | XMS_ITS | Encounter Summary ---
Author Organization [facility] Address [address] [place] [address] Phone Care Team Providers Care Coal Crusher Operator Name Role Phone Toñito Suarez Primary Care Provider Lakhwinder Murray MD Unavailable Leatha Johnson MD, MPH Unavailable [phone] Eliezer Watt MD Unavailable [phone] Slim Booker MD, DMD Unavailable Yuliet Mcpherson RN Unavailable [phone] Helena Salgado RN Unavailable Shyla Grande NP Unavailable [phone] Garrett Santoro Unavailable Silvia @[email or web address].[email or web address].[facility] Yousif Lugo MD Primary Care Provider [phone] Encounter Details Date Type Department Care Team (Late st Contact Info) Description 10/14/2018 Procedure Pass [facility] Periop [address] [place] [address] Social History Tobacco Use Types Packs/Day Years [...] on filedocumented in this encounter Care Teams Coal Crusher Operator Relationship Specialty Start Date End Date Toñito Suarez DO 24 [facility] [place] [address] PCP - General Family Medicine 09/26/18 02/02/23 Yousif Lugo MD [address] [place] [address] PCP - General 02/04/23 Lakhwinder Murray MD 24 [facility] [place] [address] Precious@[email or web address] Referring Physician occupational rehabilitation aide 09/26/18 Leatha Johnson MD, MPH [address] [place] [phone] [email or web address] Radiation Oncology 10/26/18 Eliezer Watt MD [address] [place] [address] Lalo@[facility] Medical Oncology 11/03/18 Slim Booker MD, DMD [address] [place] [address] [email or web address] Otolaryngology 11/03/18 Yuliet Mcpherson RN 450 [place] [address] MIYA@[facility] Primary Infusion Nurse 12/19/18 06/25/22 Helena Salgado RN 450 [place] [address] CRYSTAL@[facility] Associate Infusion Nurse 12/22/18 06/25/22 Shyla Grande NP [address] [place] [address] Marva@[email or web address] Radiation Oncology 01/06/19 Garrett Santoro 75 [place] [address] Silvia@[facility] Apron Worker 01/29/23 documented as of this encounter Additional Source Comments The information contained in this document represents components of the legal health record. It is not the complete legal health record.[facility]
--- OUTSIDE RECORDS SUMMARY | 2025-01-23 01:24 | XMS_ITS | Encounter Summary ---
Author Organization [facility] Address [address] [place] [address] Phone Care Team Providers Care Hydro Plant Technician Name Role Phone Toñito Suarez Primary Care Provider Lakhwinder Murray MD Unavailable [phone] Leatha Johnson MD, MPH Unavailable [phone] Eliezer Watt MD Unavailable Slim Booker MD, DMD Unavailable [phone] Yuliet Mcpherson RN Unavailable [phone] Helena Salgado RN Unavailable Shyla Grande NP Unavailable Garrett Santoro Unavailable Silvia @[email or web address].[email or web address] Yousif Lugo MD Primary Care Provider [phone] Encounter Details Date Type Department Care Team (Late st Contact Info) Description 08/12/2019 Procedure Pass [place] Imaging Department, [facility] [place], [place] 450 [facility], Floor [address]1 [place] [address] Social History Tobacco Use Types Packs/Day Years [...] documented as of this encounter Care Teams Hydro Plant Technician Relationship Specialty Start Date End Date Toñito Suarez DO 24 No [facility] [place] [address] PCP - General Family Medicine 09/26/18 02/02/23 Yousif Lugo MD [address] [place] [address] PCP - General 02/04/23 Lakhwinder Murray MD 24 No [facility] [place] [address] Precious@[email or web address] Referring Physician hand tennis ball coverer 09/26/18 Leatha Johnson MD, MPH [address] [place] [address] Russ@[email or web address] Radiation Oncology 10/26/18 Eliezer Watt MD [address] [place] [address] Lalo@[facility] Medical Oncology 11/03/18 Slim Booker MD, DMD [address] [place] [address] [email or web address] Otolaryngology 11/03/18 Yuliet Mcpherson RN [address] [place] [address] MIYA@[facility] Primary Infusion Nurse 12/19/18 06/25/22 Helnea Salgado RN [address] [place] [address] CRYSTAL@[email or web address] Associate Infusion Nurse 12/22/18 06/25/22 Shyla Grande NP [address] [place] [address] Marva@[facility] Radiation Oncology 01/06/19 Garrett Santoro 75 [place] [address] Silvia@[facility] Scrap Crusher 01/29/23 documented as of this encounter Additional Source Comments The information contained in this document represents components of the legal health record. It is not the complete legal health record.[facility]
--- OUTSIDE RECORDS SUMMARY | 2025-01-23 01:24 | XMS_ITS | Data Portability ---
Author Organization [facility]IM Tay [facility], [facility] [address] Address [address] [place] [address] Assessment No assessment recorded. Plan of Treatment Reminders Order Date Submit Date Provider Last Modified By Organization Details Last Modified Time Details Appointments None recorded. Lab culture, urine 2023 024 LOWNDES [facility], [address] [place] [address], [place], [address], 4 06:07:51 urinalysis, dipstick 2023 024 [email or web address] [facility], [address] [facility], [place], [address], 4 11:32:18 Referral None recorded. Procedures None recorded. Surgeries None recorded. Imaging None recorded. Medication Orders nitrofurant oin monohydrate /macrocryst als 100 mg capsule 2023 024 LOWNDES [id number], [address], [place], [id number], 4 11:53:20 Diflucan 150 mg tablet 2023 024 LOWNDES [id number], [address], [place], [id number], 4 11:53:20 Patient TargetsNo targets recorded. Patient Instructions Encounter Date Encounter Id Patient Instructions Last Modified By Organization Details Last Modified Time 11/09/2023 [id number] Female Urinary Tract Infection (UTI): Care Instructions Not available 11/09/2023 11:30:24 blood in the urine: care instructions Not available 11/09/2023 11:26:16 painful urinatio n (dysuria): care instructions Not available 11/09/2023 11:26:16 Reason for Referral None Reported. Results Created Date Observation Date Name Description Value Unit Range Abnormal Flag Note LastModifiedBy Organization Detail LastModifiedTime 11/09/1911/10/2023 URINE CULTU RESHRUTI NE urine culture, routine FINAL REPORT Not Available [facility] ([facility]) [address] [place], [address], 11/11/2023 06:07:50 11/09/1911/10/2023 URINE CULTU RESHRUTI NE result 1 COMMEN T Mixed uroge nital maldonado 50,00 0-100 ,000 colon y formi ng units per mL Not Available [facility] ([facility]) [address] [place], [address], 11/11/2023 06:07:50 11/09/19 24 11/09/2023 urina lysis , dipst ick Unknown Analyte Normal = light yellow Not Available [address], [address], 11/09/2023 11:13:07 11/09/19 24 11/09/2023 urina lysis , dipst ick Unknown Analyte Yellow Not Available [address], [address], 11/09/2023 11:13:07 11/09/19 24 11/09/2023 urina lysis , dipst ick Unknown Analyte Normal = clear Not Available [address], [address], 11/09/2023 11:13:07 11/09/19 24 11/09/2023 urina lysis , dipst ick Unknown Analyte Clear Not Available [address], [address], 11/09/2023 11:13:07 11/09/1911/09/2023 urina lysis , dipst ick Unknown Analyte Normal = negati ve Not Available [address], [address], 11/09/2023 11:13:07 11/09/1911/09/2023 urina lysis , dipst ick Unknown Analyte Negati ve Not Available [address], [address], 11/09/2023 11:13:07 11/09/1911/09/2023 urina lysis , dipst ick Unknown Analyte Normal = Negati ve Not Available [address], [address], 11/09/2023 11:13:07 11/09/19 24 11/09/2023 urina lysis , dipst ick Unknown Analyte Small Not Available [address], [address], 11/09/2023 11:13:07 11/09/1911/09/2023 urina lysis , dipst ick Unknown Analyte Normal = Negati ve Not Available [address], [address], 11/09/2023 11:13:07 11/09/19 24 11/09/2023 urina lysis , dipst ick Unknown Analyte 15 mg/dL Not Available [address], [address], 11/09/2023 11:13:07 11/09/19 24 11/09/2023 urina lysis , dipst ick Unknown Analyte Normal = 1.010, 1.015, 1.020 Not Available [email or web address] [address] [place] [address], [address], 11/09/2023 11:13:07 11/09/1911/09/2023 urina lysis , dipst ick Unknown Analyte 1.015 Not Available [address], [address], 11/09/2023 11:13:07 11/09/1911/09/2023 urina lysis , dipst ick Unknown Analyte Normal = Negati ve Not Available [facility] [[email or web address] ie [address], [address], 11/09/2023 11:13:07 11/09/1911/09/2023 urina lysis , dipst ick Unknown Analyte Negati ve Not Available [facility] [[email or web address]] ie [address], [address], 11/09/2023 11:13:07 11/09/1911/09/2023 urina lysis , dipst ick Unknown Analyte Normal = 6.5, 7.0, 7.5, 8.0 Not Available [facility] ie [address], [address], 11/09/2023 11:13:07 11/09/1911/09/2023 urina lysis , dipst ick Unknown Analyte 5.5 Not Available [address], [address], 11/09/2023 11:13:07 11/09/1911/09/2023 urina lysis , dipst ick Unknown Analyte Normal = Negati ve Not Available [facility] [[email or web address]] ie [address], [address], 11/09/2023 11:13:07 11/09/19 24 11/09/2023 urina lysis , dipst ick Unknown Analyte Trace Not Available [address], [address], 11/09/2023 11:13:07 11/09/19 24 11/09/2023 urina lysis , dipst ick Unknown Analyte Normal = 0.2, 1.0 Not Available [facility] [[email or web address]] ie [address], [address], 11/09/2023 11:13:07 11/09/19 24 11/09/2023 urina lysis , dipst ick Unknown Analyte 0.2 E.U./d L Not Available [address], [address], 11/09/2023 11:13:07 11/09/19 24 11/09/2023 urina lysis , dipst ick Unknown Analyte Normal = Negati ve Not Available [facility] [[email or web address]] ie [address], [address], 11/09/2023 11:13:07 11/09/19 24 11/09/2023 urina lysis , dipst ick Unknown Analyte Negati ve Not Available [facility] [[email or web address]] ie [address], [address], 11/09/2023 11:13:07 11/09/19 24 11/09/2023 urina lysis , dipst ick Unknown Analyte Normal = Negati ve Not Available [facility] [[email or web address] ie [address], [address], 11/09/2023 11:13:07 11/09/19 24 11/09/2023 urina lysis , dipst ick Unknown Analyte Trace Not Available [address], [address], 11/09/2023 11:13:07 Result Notes None recorded. 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 Procedures Surgical History Date Name Laterality Status Provider Name and Address Organization Details Recorded Time Removal of gallbladder completed AXEL MINEO PA - [facility] 11/09/2023 11:20:22 Shoulder joint surgery completed AXEL MINEO PA - [facility] 11/09/2023 11:20:26 Partial mastectomy completed AXEL MINEO PA - [facility] 11/09/2023 11:21:23 Imaging Results None recorded. Procedure Notes None recorded. Medical Equipment None Reported. Allergies Allergen ID Allergen Name Allergen Category Reaction Reaction Severity Criticality Documentation Date Start Date Code Code System Note Provider Name and Address Organization Details Recorded Time 561577 Percodan medicatio n Not available Not available Not available 11/09/2023 57890 RxNorm AXEL MINEO null, [place] - [facility] 11:17:12 023973 acetamino phen / oxycodone medicatio n Not available Not available Not available 11/09/2023 44205 3 RxNorm AXEL MINEO null, [place] - [facility] 4 11:17:17 643589 codeine medicatio n Not available Not available Not available 11/09/2023 2670 RxNorm AXEL CHILDERS null, [place] - [facility] 4 11:17:22 820650 morphine medicatio n Not available Not available Not available 11/09/2023 7052 RxNorm AXEL CHILDERS null, [place] - [facility] 4 11:17:46 590354 Product containin g penicilli n (product) medicatio n Not available Not available Not available 11/09/2023 12282 8001 SNOMED AXEL CHILDERS null, [place] - [facility] 4 11:17:56 Medications Name Sig Start Date Stop Date Status Note LastModified by Organization Details LastModified Time Diflucan 150 mg tablet Take 1 tablet by oral route for 1 day. 2023 active Not Available Not Available Not Avai lable levothyroxine 50 mcg tablet active Not Available Not Availabl e Not Available sodium fluoride 1.1 % dental gel active Not Available Not Available Not Available nitrofurantoin monohydrate/mac rocrystals 100 mg capsule Take 1 capsule twice a day by oral route for 5 days. 2023 active Not Available Not Available Not Avai lable metoprolol succinate active Not Available Not Available No t Available Vitals Date Recorded Body weight Body mass index (BMI) Body height Oxygen saturation Heart rate Respiratory rate Body temperature Systolic And Diastolic Provider Name and Address Organization Details Last Updated DateTime 4 84417.2 3 g 22.5 kg/m2 160.02 cm 100 % 62 /min 18 /min 98 [degF] 132/87 mm[Hg] AXEL CHILDERS PA - [facility] 4 11:16:32 Social History None recorded. Functional Status None recorded. Mental Status None recorded. Family History Nothing Reported. Medical History No medical history recorded. Gynecological History Statement/Question Response LMP N/A Obstetrics History GPAL:G 0 P 0 0 0 0 Immunizations Vaccine Type Date Status Note Provider Nam e and Address Organization Details Recorded Time Influenza, MDCK, quadrivalent, PF 03/04/2023 completed AXEL MINEO null, PA - [facility] 11/09/2023 11:13:29 Influenza, MDCK, quadrivalent, PF 12/22/2021 completed AXEL MINEO null, [place] - [facility] 11/09/2023 11:13:29 COVID-19, mRNA, LNP-S, PF, 100 mcg/0.5mL dose or 50 mcg/0.25mL dose 02/16/2021 completed AXEL MINEO null, [place] - [facility] 11/09/2023 11:13:29 COVID-19, mRNA, LNP-S, PF, 30 mcg/0.3 mL dose 04/09/2020 completed AXEL MINEO null, PA - [facility] 11/09/2023 11:13:29 COVID-19, mRNA, LNP-S, PF, 30 mcg/0.3 mL dose 05/01/2020 completed AXEL MINEO null, PA - [facility] 11/09/2023 11:13:29 COVID-19, mRNA, LNP-S, bivalent, PF, 50 mcg/0.5 mL or 25mcg/0.25 mL dose 12/22/2021 completed AXEL MINEO null, PA - [facility] 11/09/2023 11:13:29 COVID-19, mRNA, LNP-S, PF, 50 mcg/0.5 mL 03/04/2023 completed AXEL MINEO null, PA - [facility] 11/09/2023 11:13:29 Influenza, split virus, quadrivalent, PF 11/24/2020 completed AXEL MINEO null, PA - [facility] 11/09/2023 11:13:29 Past Encounters Encounter ID Performer Location Encounter Start Date Encounter Closed Date Diagnosis/Indication Diagnosis SNOMED-CT Code Diagnosis ICD10 Code Diagnosis IMO Codes Diagnosis Note [id number] 2099_[facility] [address] [address] 08/04/2016 19:35:44 08/04/2016 20:06:28 [id number] 2099_[facility] [address] [address] 05/28/2018 12:47:50 05/28/2018 13:50:27 [id number] Rona Foley, BRAVO [facility] [address] [place] [address] 11/09/2023 10:13:22 11/09/2023 11:54:48 Blood in urine 38943405 R31.9 Blood in the urine, or hematuria, may make the urine look red, brown, or pink. There may be blood every time you urinate or just from time to time. You cannot always see blood in the urine, but it will show up in a urine test.Blood in the urine may be serious. It should always be checked by a doctor. Your doctor may recommend more tests, including an X-ray, a CT scan, or a cystoscopy (which lets a doctor look inside the urethra and bladder).B lood in the urine can be a sign of another problem. Common causes are bladder infections and kidney stones. An injury to your groin or your genital area can also cause bleeding in the urinary tract. Very hard exercise s uch as running a marathon c an cause blood in the urine. Blood in the urine can also be a sign of kidney disease or cancer in the bladder or kidney. Many cases of blood in the urine are caused by a harmless condition that runs in families. This is called benign familial hematuria. It does not need any treatment. Sometimes your urine may look red or brown even though it does not contain blood. For example, not getting enough fluids (dehydrati on), taking certain medicines, or having a liver problem can change the color of your urine. Eating foods such as beets, rhubarb, or blackberri es or foods with red food coloring can make your urine look red or pink.Follo w-up care is a bland part of your treatment and safety. Be sure to make and go to all appointmen ts, and call your doctor if you are having problems. It's also a good idea to know your test results and keep a list of the medicines you take.When should you call for help?Call your doctor now or seek immediate medical care if:You have symptoms of a urinary infection. For example:Yo u have pus in your urine.You have pain in your back just below your rib cage. This is called flank pain.You have a fever, chills, or body aches.It hurts to urinate.Yo u have groin or belly pain.You have more blood in your urine. Dysuria-fr equency syndrome 9112117 R35.0 The following are recommenda tions to help with your symptoms and recovery:1 . Drink Plenty of fluids - Stay hydrated2. Finish full antibiotic course3. I recommend starting a Probiotic - I recommend Florastor4 . If you take Azo - this will help the burning and urgency feeling - just be aware it will turn your urine bright yellow. I would not hesitate to be seen again if you develop:1. Severe Back Pain2. Abdominal Pain3. Nausea and Vomiting4. Vaginal Discharge or Bleeding5. Fever > 101.0 You symptoms should improve within 72 hours for a typically UTI. If a urine culture was sent out to the lab for you we should get the results back within 4 days. This will be able to prove that your symptoms are caused by a UTI and it will also verify that the correct antibiotic was prescribed . Thank you for using [email or web address] - please don't hesistate to call our office if you have any questions or concerns. Health Concerns Section Related Observation LastModified by Organization Detai ls LastModified Time None Recorded Concern Status LastModified by Organization Details LastModified Time None Recorded Advance Directives Directive None Recorded Payers Insurance Date Sequence Insurance Name Policy Number Policy Ortega Covered Member ID Ortega Member ID Guarantor Name 11/09/2023 1 [facility] (MEDICARE REPLACEMENT/A DVANTAGE - HMO) [id number] Cee Stark [place] [id number] Cee [place] 11/09/2023 1 MED[place]ARE B-[place]: [facility] Cee Stark [place] [id number] Cee [place] Notes Date Note Type Note Provider Name and Address Organization Details Recorded Time 11/09/2023 text/html Urinary Complain t FemaleReported by PatientUrinary problemsFor uti symptoms, patient reportspain during urination,blood in the urine,urinary frequency, andvaginal dischargebut reportsno incontinenceandno known exposure to std. For source of patient information, patient reportsinformation obtained from patientandpatient arrived at urgent care ambulatory. For severity, patient reportsmoderate. For duration, patient reports1 weeks. For modifying factors, patient reportsnothing gives relief. 58 YOF presents with Blood in urine x1 last week , frequency to urinate last Wednesday, took otc medicine without relief. presently has yeast infection and is taking monistat. Rona Foley NP [address] [place], [address], [place] - [facility] 11/09/2023 11:54:13 OBGyn Episode No OBEpisode recorded.
--- OUTSIDE RECORDS SUMMARY | 2025-01-23 01:24 | XMS_ITS | Clinical Summary ---
Author Organization [facility] Address [address] [place] [address] Phone Care Team Providers Care Able Seaman Name Role Phone Lakhwinder Murray MD Unavailable [phone] Leatha Johnson MD, MPH Unavailable + [phone] Eliezer Watt MD Unavailable [phone] Slim Booker MD, DMD Unavailable [phone] Shyla Grande WATER SERVICE SUPERVISOR Unavailable [phone] Garrett Santoro Unavailable [email or web address] Yousif Lugo MD Primary Care Provider [phone] Allergies Active Allergy Reactions Criticality Noted Date [...] SCREENING 12/17/2019 12/16/2018 TSH LEVEL 08/14/2021 08/14/2020, 03, 09/11/2019 BLOOD PRESSURE 08/06/2023 02/04/2023 INFLUENZA VACCINE (#1) 2024 , 11/24/2020, 11/22/2018 COVID-19 VACCINE (5 - 2025-26 season) 2024 12/22/2021, 02/16/2021, 05/01/2020, Additional history exists RSV [...] Procedure Name Priority Date/Time Associated Diagnosis Comments THYROID STIMULATING HORMONE (TSH) Routine 08/14/2020 11:01 AM EDT 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 from Last 3 Months or Most Recently Relevant to Health Maintenance Results * TSH (08/14/2020 11:01 AM EDT) TSH 2.82 0.27 - 4.20 uIU/mL [facility] LIC# [id number] Blood 08/14/2020 11:0 1 AM EDT 08/14/2020 11:10 AM EDT us Leatha Johnson MD, MPH LAB BLOOD BKR ORDERA BLES Final Result [facility] LIC# [id number] [address] [place] [address] from Last 3 Months or Most Recently Relevant to Health Maintenance Insurance [facility] MEDICARE [place] [address] [place] [address] MEDICARE REPLACEMENT [facility] MEDICARE REPLACEMENT [facility] MEDICARE REPLACEMENT [facility] MEDICARE REPLACEMENT Advance Directives For more information, please contact: [phone] (9AM - 5PM [place], Wednesday-Wednesday) Documents on File Type Date Recorded Patient Collection Analyst Expl anation Healthcare Proxy 10/14/2018 * Full Code (Presumed) (Latest Code Status on File) Date Activated Date Inactivated Comments 10/14/2018 7:58 PM 10/17/2018 4:31 PM Healthcare Agents on File Name Relationship Healthcare Agent Relationship Communication David Montgomery Son .Primary Health Care Agent (Proxy form on file) Eddie Steele Alternate Health care Agent (Proxy form on file) Care Teams Able Seaman Relationship Specialty Start Date End Date Yousif Lugo MD [address] [place] [address] PCP - General 02/04/23 Lakhwinder Murray MD [email or web address] Referring Physician foot and ankle surgeon 09/26/18 Leatha Johnson MD, MPH [address] [place] [address] [email or web address] Radiation Oncology 10/26/18 Eliezer Watt MD [address] [place] [address] [email or web address] Medical Oncology 11/03/18 Slim Booker MD, DMD [address] [place] [address] [email or web address] 11/03/18 Shyla Grande NP [address] [place] [address] [email or web address] Radiation Oncology 01/06/19 Garrett Santoro [address] [place] [address] [email or web address] Director Of Entertainment 01/29/23 Additional Source Comments The information contained in this document represents components of the legal health record. It is not the complete legal health record.[facility]
--- OUTSIDE RECORDS SUMMARY | 2025-01-23 01:24 | XMS_ITS | Encounter Summary ---
Author Organization [facility] Address [address] [place] [address] Phone Care Team Providers Care Cap Lining Machine Operator Name Role Phone Toñito Suarez Primary Care Provider Lakhwinder Murray MD Unavailable [phone] Leatha Johnson MD, MPH Unavailable [phone] Eliezer Watt MD Unavailable [phone] Slim Booker MD, DMD Unavailable Yuliet Mcpherson RN Unavailable [phone] Helena Salgado RN Unavailable Shyla Grande NP Unavailable [phone] Garrett Santoro Unavailable Silvia [email or web address] Yousif Lugo MD Primary Care Provider [phone] Encounter Details Date Type Department Care Team (Late st Contact Info) Description 11/19/2020 Procedure Pass [place] [facility], [facility] [place], [place] [address] [facility], [address] [place] [address] Social History Tobacco Use Types Packs/Day Years [...] documented as of this encounter Care Teams Cap Lining Machine Operator Relationship Specialty Start Date End Date Toñito Suarez DO [address] [facility] [place] [address] PCP - General Family Medicine 09/26/18 02/02/23 Yousif Lugo MD [address] [place] [address] PCP - General 02/04/23 Lakhwinder Murray MD [address] [facility] [place] [address] [email or web address] Referring Physician cigarette tipper 09/26/18 Leatha Johnson MD, MPH [address] [place] [phone] [email or web address] Radiation Oncology 10/26/18 Eliezer Watt MD [address] [place] [address] [email or web address] Medical Oncology 11/03/18 Slim Booker MD, DMD [address] [place] [address] [email or web address] 11/03/18 Yuliet Mcpherson RN [address] [place] [address] [email or web address] Primary Infusion Nurse 12/19/18 06/25/22 Helena Salgado RN [address] [place] [address] [email or web address] Associate Infusion Nurse 12/22/18 06/25/22 Shyla Grande NP [address] [place] [address] [email or web address] Radiation Oncology 01/06/19 Garrett Santoro [address] [place] [address] [email or web address] Activity Director 01/29/23 documented as of this encounter Additional Source Comments The information contained in this document represents components of the legal health record. It is not the complete legal health record.[facility]
--- OUTSIDE RECORDS SUMMARY | 2025-01-23 01:24 | XMS_ITS | Encounter Summary ---
Author Organization [facility] Address [address] [place] [address] Phone Care Team Providers Care Hansard Reporter Name Role Phone Toñito Suarez Primary Care Provider Lakhwinder Murray MD Unavailable [phone] Leatha Johnson MD, MPH Unavailable [phone] Eliezer Watt MD Unavailable [phone] Slim Booker MD, DMD Unavailable Yuliet Mcpherson RN Unavailable [phone] Helena Salgado RN Unavailable Shyla Grande NP Unavailable Garrett Santoro Unavailable [email or web address] Yousif Lugo MD Primary Care Provider [phone] Encounter Details Date Type Department Care Team (Late st Contact Info) Description 04/14/2019 Transcribe Orders [facility], [facility], Imaging Rxwar-av-Cfyi [address] [facility] [place] [address] Leatha Johnson MD, MPH [address] [place] [address] [email or web address] Blood tests prior to treatment or procedure [...] EST) CREATININE 0.59 0.50 - 1.20 mg/dL [facility] LIC# [id number] EGFR 102 >59 mL/min/1.7 3m2 [facility] LIC# [id number] Comment:If patient is Starla n-Mongolian, multiply result by 1.159. Estimated glomerular filtration rate calculated using the CKD-EPI equation. Blood 04/17/2019 10:1 6 AM EST 04/17/2019 10:30 AM EST us Leatha Johnson MD, MPH LAB BLOOD BKR ORDERA BLES Final Result [facility] LIC# [id number] [address] [place] [address] documented in this encounter Visit Diagnoses Diagnosis Blood tests prior to treatment or procedure- Primary Pre-procedural laboratory examination documented in this encounter Additional Health Concerns Assessment Noted Time PHQ-2 Depression Total Score: 0 12/17/19 19 8:09 AM EDT documented as of this encounter Care Teams Hansard Reporter Relationship Specialty Start Date End Date Toñito Suarez DO [address] [facility] [place] [address] PCP - General Family Medicine 09/26/18 02/02/23 Yousif Lugo MD [address] [place] [id number] PCP - General 02/04/23 Lakhwinder Murray MD [address] [facility] [place] [address] [email or web address] Referring Physician button bradder 09/26/18 Leatha Johnson MD, MPH [address] [place] [phone] [email or web address] [email or web address] Oncology 10/26/18 Eliezer Watt MD [address] [place] [phone] [email or web address] Medical Oncology 11/03/18 Slim Booker MD, DMD [address] [place] [phone] [email or web address] 11/03/18 Yuliet Mcpherson RN [address] [place] [id number] [email or web address] Primary Infusion Nurse 12/19/18 06/25/22 Helena Salgado RN [address] [place] [id number] [email or web address] Associate Infusion Nurse 12/22/18 06/25/22 Shyla Grande, BULK DELIVERY DRIVER [address] [place] [address] [email or web address] Radiation Oncology 01/06/19 Garrett Santoro [address] [place] [address] [email or web address] Wild Life Photographer 01/29/23 documented as of this encounter Additional Source Comments The information contained in this document represents components of the legal health record. It is not the complete legal health record.[facility]
== END 2025-01-22 16:37 | disposition home or self-care (01) ==
LOC: HO.HMCFM 15:49
PROVIDERS: PCP Physician Assistant Medical; Visit Provider Physician Assistant Medical
DX: I10 Essential (primary) hypertension (principal); F41.8 Other specified anxiety disorders; R11.10 Vomiting, unspecified; R63.4 Abnormal weight loss; Z85.810 Personal history of malignant neoplasm of tongue

== ENCOUNTER → 2025-01-22 15:49 | Outpatient (BNVA) | payer MEDICARE, SELFPAY | PROVIDERS: PCP Physician Assistant Medical; Visit Provider Physician Assistant Medical | DX: I10 Essential (primary) hypertension (principal); F41.8 Other specified anxiety disorders; R11.10 Vomiting, unspecified; Z85.810 Personal history of malignant neoplasm of tongue; R63.4 Abnormal weight loss; R55 Syncope and collapse | CPT/HCPCS: 99212 ==